=== PATIENT | female | born 2000 | race Caucasian/White ===

== ENCOUNTER 2020-02-13 14:24 | Emergency (ER) | payer OTHER, SELFPAY ==
[2020-02-13 14:34] VITALS: BP 131/70; PULSE 117; RESP 16; TEMP 36.9; O2SAT 100
--- NOTE | 2020-02-13 14:35 | ED.FEMALEGU ---
HPI - Female Genitourinary General Chief complaint: SURVEY RODMAN Stated complaint: yeast infection Time Seen by Provider: 02/13/20 14:35 Source: patient Mode of arrival: ambulatory History of Present Illness HPI Narrative: Isabel Lubin is a 19 yo female with no PMH who comes to express care with a yellowish vaginal discharge that is been present for couple days. Patient is complaining of itching and swelling of the in the genital area; believes that she does not have an STD because she felt the same partner for the last couple months. Tested by her ARTIFICIAL INSEMINATION TECHNICIAN a couple months ago for STDs and was found to be negative. Asked patient to give us a urine for and will check for STD and run a UA at the same time Related Data Allergies Allergy/AdvReac Type Severity Reaction Status Date / Time No Known Allergies Allergy Unverified 06/28/17 18:26 Review of Systems Review of Systems: Narrative: CONSTITUTIONAL: Denies fever, chills, sweats. EYES: Denies visual changes, redness, discharge. ENT: Denies rhinorrhea, congestion, sore throat, otalgia. CARDIOVASCULAR: Denies chest pain, palpitations, edema. RESPIRATORY: Denies dyspnea, wheezing, cough GASTROINTESTINAL: Denies abdominal pain, nausea, vomiting, diarrhea. GENITOURINARY: Denies dysuria, hematuria, has a whitish-yellow abnormal discharge SKIN: Denies rash or itching. NEUROLOGIC: Denies numbness, or focal weakness. PSYCHIATRIC: Denies anxiety or depression. PMFSH Family History Family History Other No active medical problems Social History Social History (Updated 02/13/20 @ 14:42 by Irma Celis CNP) Smoking status: Current some day smoker Comments At time of signature, I agree with nursing past medical, surgical, social and family history. There is no relevant family history pertinent to the presenting complaint. Exam Narrative: Exam Narrative: GENERAL: This is a well-nourished, well-developed patient, in mild distress. HEAD: normocephalic, atraumatic. EYES: Sclera clear/white. Vision is grossly intact. EARS: External ears normal, Hearing grossly intact. NOSE: External nose normal without nasal discharge, nares without redness, no rhinorrhea. THROAT: Mucous membranes moist, NECK: Neck supple, CARDIOVASCULAR: Tachycardic rate and rhythm without murmurs, gallops, or rubs. RESPIRATORY: Clear to auscultation. Breath sounds equal bilaterally. No wheezes, rales, or rhonchi. GASTROINTESTINAL: Abdomen soft, : no CMT, moderate amount white discharge with mild tenderness of vulva, no redness or lesions of vaginal vault SKIN: warm, intact with no suspicious lesions or rash, good texture and turgor. NEURO: awake, alert, and oriented to person, place and time. There were no obvious focal neurologic abnormalities. Steady gait EXTREMITIES: Normal range of motion. BACK: Nontender without deformity Course Course Emergency Course: hcg, UA dip- 1+ leukocytes, no nitries- sent for cx (also tr blood) Pt refuses tx preventatively for std- will wait for results= started on flagyl wiith 1 dose diflucan at end of course follow up with ARTIFICIAL INSEMINATION TECHNICIAN Vital Signs Vital signs: Vital Signs Temperature 98.4 F 02/13/20 14:34 Pulse Rate 117 H 02/13/20 14:34 Respiratory Rate 16 02/13/20 14:34 Blood Pressure 131/70 02/13/20 14:34 Pulse Oximetry 100 02/13/20 14:34 Temperature 98.4 F 02/13/20 14:34 Pulse Rate 117 H 02/13/20 14:34 Respiratory Rate 16 02/13/20 14:34 Blood Pressure 131/70 02/13/20 14:34 Pulse Oximetry 100 02/13/20 14:34 MDM - Female Genitourinary Differential Diagnosis Differential diagnosis: Likely urinary tract infection, bacterial vaginosis, cervicitis, vaginitis, cystitis and other Lab Data Labs: UCG Bedside Result Negative Reference Range: Negative Urine Glucose Negative Reference Range: Negative Urine Bilirubin
== END 2020-02-13 15:06 | disposition home or self-care (01) ==
PROVIDERS: Emergency Provider Nurse Practitioner
DX: N76.0 Acute vaginitis (principal); F17.200 Nicotine dependence, unspecified, uncomplicated
CPT/HCPCS: 81003; 81025; 87077; 87086; 87088; 87491; 87591; 99214; G0463

== ENCOUNTER 2020-02-18 17:50 | Emergency (ER) | payer OTHER, SELFPAY ==
[2020-02-18 18:10] VITALS: BP 122/71; PULSE 117; RESP 18; TEMP 37.3; O2SAT 100
--- NOTE | 2020-02-18 18:17 | ED.HA ---
HPI - Headache General Chief Complaint: Headache Stated Complaint: Headache,Nausea Time Seen by Provider: 02/18/20 18:15 Source: patient and RN notes reviewed Mode of arrival: ambulatory Limitations: no limitations History of Present Illness HPI Narrative: 19-year-old female presents with concern for headache that started today. Reports mild frontal headache, she was concerned that headache could be a side effect of medication. She is currently taking a course of Flagyl prescribed on a previous visit. She denies any weakness, vomiting, rhinorrhea, sore throat, nasal congestion. Denies any intervention for her headache. MD elicited complaint: headache Related Data Allergies Allergy/AdvReac Type Severity Reaction Status Date / Time No Known Allergies Allergy Unverified 06/28/17 18:26 Review of Systems Review of Systems: Narrative: CONSTITUTIONAL: Denies malaise, chills, sweats, or fever. EYES: Denies visual changes, redness, or discharge. ENT: Denies rhinorrhea, congestion, sinus pain, otalgia or sore throat. CARDIOVASCULAR: Denies chest pain, palpitations, or edema. RESPIRATORY: Denies cough or dyspnea. GASTROINTESTINAL: Denies abdominal pain, nausea, vomiting, diarrhea SKIN: Denies rash or itching. MUSCULOSKELETAL: Denies myalgia. NEUROLOGIC: Reports headache. All systems reviewed & are unremarkable except as noted in HPI and below PMFSH Social History Social History (Updated 02/13/20 @ 14:42 by Irma Celis CNP) Smoking status: Current some day smoker Gender identity (if verbalized by the patient): Female Comments At time of signature, agree with nursing past medical, surgical, social and family history. There is no relevant family history pertinent to the presenting complaint Exam Narrative: Exam Narrative: GENERAL: Well-appearing, well-nourished, and in no acute distress. HEAD: Normocephalic, atraumatic. EYES: PERRLA, conjunctivae clear, and EOMI. No nystagmus. ENT: Nares clear, turbinates pink, no rhinorrhea or epistaxis. Mucous membranes moist. Oropharynx without erythema or lesions. Tonsils not present NECK: Supple. CHEST: No respiratory distress. Clear to auscultation. No bony deformities, no asymmetry. Speaks in full sentences. HEART: Regular rate and rhythm. No murmur heard. Normal peripheral pulses. SKIN: Warm, dry, no rash. NEURO: Alert and oriented x3. No focal deficits. Cranial nerves II through XII grossly intact PSYCH: Normal mood and affect Course Course Emergency Course: Patient is aware of diagnosis, understands and agrees to treatment plan. Anticipatory guidance given. Patient agrees to follow-up as directed and is aware of reasons to seek care at the emergency department. Portions of this record may have been created with voice recognition software Vital Signs Vital signs: Vital Signs Temperature 99.1 F 02/18/20 18:10 Pulse Rate 117 H 02/18/20 18:10 Respiratory Rate 18 02/18/20 18:10 Blood Pressure 122/71 02/18/20 18:10 Pulse Oximetry 100 02/18/20 18:10 Temperature 99.1 F 02/18/20 18:10 Pulse Rate 117 H 02/18/20 18:10 Respiratory Rate 18 02/18/20 18:10 Blood Pressure 122/71 02/18/20 18:10 Pulse Oximetry 100 02/18/20 18:10 Reviewed. MDM - Headache MDM Narrative Medical decision making narrative: The patient presents with an acute onset headache for 7 hours in duration. Patient has no past history of headaches. There is not a history of anticoagulation, trauma, , cancer or immunocompromised state. Mental status was normal, no neurological deficits were noted. Differential Diagnosis considered includes hypertensive emergency, subarachnoid hemorrhage, meningitis, trauma, CVA, migraine. Recommendations were given for follow-up with PCP in 1-2 days and to return to the ED for worsening of headache or any other concerns Based on the patient's history and physical there is very low clinical suspicion for significant intracranial pathology. The hea
== END 2020-02-18 18:27 | disposition home or self-care (01) ==
PROVIDERS: Emergency Provider Nurse Practitioner; PCP Pediatrics
DX: R51 Headache (principal)
CPT/HCPCS: 99213; G0463

== ENCOUNTER 2021-05-25 09:46 | Emergency (ER) | payer OTHER, SELFPAY ==
--- NOTE | 2021-05-25 09:59 | ED.URI ---
HPI - URI/Sore Throat General Chief Complaint: Upper Respiratory Infection Stated Complaint: Headache,Body Ache Time Seen by Provider: 05/25/21 09:59 Source: patient, family (mom), RN notes reviewed and old records reviewed Mode of arrival: ambulatory Limitations: no limitations History of Present Illness HPI Narrative: 20-year-old female presents to the [facility] with complaints of a headache and generalized body aches since waking up this morning, 2 hours [employer]. No treatment prior to arrival. Denies any sinus issues. Denies any chest pain or abdominal pain. Denies fevers. Mom reports that she just got over a cold and was worried that daughter was going to be coming down with a cold. Explained to mom and patient that symptoms for only 2 hours, cannot find anything infectious looking. Discussed [id number] treatments. If symptoms get worse to return both patient and mother verbalized understanding. Related Data Allergies Allergy/AdvReac Type Severity Reaction Status Date / Time No Known Allergies Allergy Unverified 06/28/17 18:26 Review of Systems Review of Systems: All systems reviewed & are unremarkable except as noted in HPI and below Constitutional: Constitutional: Reports no additional constitutional complaints, Denies chills and Denies fever(s) Eyes: Eyes: Reports no additional eye complaints and Denies change in vision ENT: Reports system reviewed and no additional complaints, except as documented, Denies dysphagia, Denies dizziness, Denies epistaxis, Denies nasal congestion and Denies sore throat Cardiovascular: Cardiovascular: Reports no additional cardiovascular complaints and Denies chest pain Respiratory: Respiratory: Reports no additional respiratory complaints, Denies cough and Denies dyspnea Gastrointestinal: Gastrointestinal: Reports no additional gastrointestinal complaints, Denies abdominal pain, Denies nausea and Denies vomiting Musculoskeletal: Musculoskeletal: Reports as per HPI and Reports myalgias Integumentary/Breasts: Skin/Breast: Reports system reviewed and no additional complaints, except as docu Neurologic: Reports system reviewed and no additional complaints, except as documented Psychiatric: Psychiatric: Reports no additional psychiatric complaints Allergic/Immunologic: Allergic/Immunologic: Reports no additional allergic/immunologic complaints, Denies lip swelling, Denies throat swelling and Denies tongue swelling PMFSH Past Medical History Medical History (Updated 05/25/21 @ 12:47 by Shauna Harris) Patient denies medical problems Surgical History Surgical History (Updated 05/25/21 @ 12:47 by Shauna Harris) No significant past surgical history Family History Family History Other No active medical problems Social History Social History Smoking status: Current some day smoker Gender identity (if verbalized by the patient): Female Comments At the time of my signature, I reviewed and agree with the nursing past medical, surgical, social, and family history. There is no relevant family history pertinent to the patient complaint. Exam Const: General: healthy appearing, no acute distress and alert Nutritional Appearance: well nourished Orientation/consciousness: patient oriented x3 Limitations: no limitations HENMT: Head: normal to inspection Ears: external ears normal, TM's normal bilaterally and EAC's normal Eyes: Pupils: Equal, round and reactive pupils present Neck: Neck: normal visual inspection, no lymphadenopathy and no meningeal signs Chest: Chest palpation & inspection: normal inspection of the chest Resp: Effort & Inspection: normal respiratory effort and no use of accessory muscles Auscultation: clear to auscultation bilaterally, no crackles, no rales, no rhonchi and no wheezes Cardio: Rate: regular rate Rhythm: regular rhythm GI: GI Palp: Yes S
[2021-05-25 10:00] VITALS: BP 115/60; PULSE 130; RESP 16; TEMP 37.6; O2SAT 99
== END 2021-05-25 10:22 | disposition home or self-care (01) ==
PROVIDERS: Emergency Provider Nurse Practitioner; PCP Family Medicine
DX: R51.9 Headache, unspecified (principal)
CPT/HCPCS: 99211; G0463

== ENCOUNTER 2021-05-29 17:10 | Emergency (ER) | payer OTHER, SELFPAY ==
[2021-05-29 17:19] VITALS: BP 114/65; PULSE 96; RESP 16; TEMP 37.6; O2SAT 100
--- NOTE | 2021-05-29 17:36 | ED.URI ---
HPI - URI/Sore Throat General Chief Complaint: Upper Respiratory Infection Stated Complaint: Congestion,No taste of Smell Time Seen by Provider: 05/29/21 17:36 Source: patient, family and RN notes reviewed Mode of arrival: ambulatory Limitations: no limitations History of Present Illness HPI Narrative: 20-year-old female presents to the [facility] with complaints of congestion with loss of taste and smell yesterday. Has had a for headache. Denies fevers. No nausea vomiting diarrhea. Has been drinking water. No other treatment prior to arrival. Patient states that she does have a concern for Covid MD elicited complaint: rhinorrhea and nasal congestion Related Data Home Medications Medication Instructions Recorded Confirmed cyclobenzaprine 10 mg PO TID 05/29/21 05/29/21 prednisone 40 mg PO DAILY 05/29/21 05/29/21 Allergies Allergy/AdvReac Type Severity Reaction Status Date / Time No Known Allergies Allergy Verified 05/29/21 17:25 Review of Systems Review of Systems: All systems reviewed & are unremarkable except as noted in HPI and below Constitutional: Constitutional: Reports as per HPI, Reports chills, Reports fatigue and Reports fever(s) (Subjective) Eyes: Eyes: Reports no additional eye complaints ENT: Reports system reviewed and no additional complaints, except as documented and Denies sore throat Cardiovascular: Cardiovascular: Reports no additional cardiovascular complaints and Denies chest pain Respiratory: Respiratory: Reports no additional respiratory complaints, Denies cough, Denies dyspnea and Denies wheezing Gastrointestinal: Gastrointestinal: Reports no additional gastrointestinal complaints Genitourinary: Genitourinary: Reports no additional female genitourinary complaints Musculoskeletal: Musculoskeletal: Reports no additional musculoskeletal complaints Integumentary/Breasts: Skin/Breast: Reports system reviewed and no additional complaints, except as docu Neurologic: Reports as per HPI, Reports headache(s), Denies focal weakness and Denies numbness Psychiatric: Psychiatric: Reports no additional psychiatric complaints Allergic/Immunologic: Allergic/Immunologic: Reports no additional allergic/immunologic complaints PMFSH Past Medical History Medical History Patient denies medical problems Surgical History Surgical History No significant past surgical history Family History Family History Other No active medical problems Social History Social History Smoking status: Current some day smoker Gender identity (if verbalized by the patient): Female Comments At the time of my signature, I reviewed and agree with the nursing past medical, surgical, social, and family history. There is no relevant family history pertinent to the patient complaint. Exam Const: General: healthy appearing, no acute distress and alert Nutritional Appearance: well nourished Orientation/consciousness: patient oriented x3 Limitations: no limitations HENMT: Head: normal to inspection Ears: external ears normal, TM's normal bilaterally and EAC's normal Eyes: Pupils: Equal, round and reactive pupils present Neck: Neck: normal visual inspection, no lymphadenopathy and no meningeal signs Chest: Chest palpation & inspection: normal inspection of the chest Resp: Effort & Inspection: normal respiratory effort and no use of accessory muscles Auscultation: clear to auscultation bilaterally, no crackles, no rales, no rhonchi and no wheezes Cardio: Rate: regular rate GI: GI Palp: Yes Soft to palpation and No Tenderness to palpation present (GI) Back/Spine/Pelvis: Back: no CVA tenderness Skin: General skin exam: normal color Rashes: no rashes Wounds: no wounds Neuro: General: patient oriented x3, move
[2021-05-30 17:55] LABS: SARS-CoV-2 RNA PCR Positive
== END 2021-05-29 17:55 | disposition home or self-care (01) ==
PROVIDERS: Emergency Provider Nurse Practitioner; PCP Family Medicine
DX: U07.1 COVID-19 (principal); F17.200 Nicotine dependence, unspecified, uncomplicated
CPT/HCPCS: 99213; C9803; G0463; U0003; U0005

== ENCOUNTER 2022-02-26 13:36 | Emergency (ER) | payer OTHER, SELFPAY ==
--- NOTE | ~2022-02-26 | CT_ITS ---
EXAMINATION: CT abdomen pelvis w con INDICATION: Abdominal pain TECHNIQUE: Computed tomographic images of the abdomen and pelvis were obtained after the administrati on of 100 cc of Omnipaque 350 intravenous contrast. The dose-length product (DLP) was 339.02 mGy-cm. Automated exposure control and iterative reconstruction technique were employed. COMPARISON: None available FINDINGS: The lung bases are clear. The heart size is normal. The liver, spleen, pancreas, gallbladde r, and adrenal glands are normal. The kidneys are unremarkable. No pathologically enlarged abdominal or pelvic lymph nodes are identified. There is no free intraperitoneal gas or evidence of bowel obstr uction. The appendix is normal. IMPRESSION: 1. No CT correlate for the patient's symptoms. Reviewed, dictated and finalized at location B.
[2022-02-26 13:42] VITALS: BP 139/95; PULSE 125; RESP 20; TEMP 36.5; O2SAT 100
[2022-02-26 14:23] LABS: Appearance Urine Clear (Clear); Bilirubin Urine Negative (Negative); Blood Urine 1+ (Negative); Color Urine Yellow (Yellow); Glucose Urine UA Negative (Negative); Ketones Urine Negative (Negative); Leukocyte Esterase Ur Trace LEU/UL (Negative); Nitrate Urine Negative (Negative); Protein Urine Negative (Negative); pH Urine 7.5 (5.0-9.0)
[2022-02-26 14:28] LABS: Basophils Percent Auto 0.6 % (0.2-1.2); Eosinophils Absolute Auto 0.1 K/mm3 (0-0.3); Eosinophils Percent Auto 2.2 % (0-4.4); Hemoglobin 13.1 g/dL (12.0-15.0); Immature Granulocyte Absolute 0.03 K/mm3 (0.00-0.031); Immature Granulocyte Percent A 0.5 % (0-0.5); Lymphocytes Absolute Auto 1.66 K/mm3 (0.9-3.2); Lymphocytes Percent Auto 26.3 % (18.3-44.2); Mean Corpuscular HGB Conc 32.8 g/dl (32-36); Mean Corpuscular Hemoglobin 29.1 pg (26-34); Mean Corpuscular Volume 88.9 fl (80-100); Mean Platelet Volume 11.1 fl (7.4-10.4); Monocytes Absolute Auto 0.8 K/mm3 (0.1-0.6); Monocytes Percent Auto 12.1 % (2.6-8.5); Neutrophils Absolute Auto 3.7 K/mm3 (1.3-6.7); Neutrophils Percent Auto 58.3 % (45.5-73.1); Platelet Count Result 205 k/mm3 (150-375); Red Cell Distribution Width 13.2 % (11.5-14.5); White Blood Count 6.3 K/mm3 (4.5-10.0)
[2022-02-26 14:29] LABS: Squamous Epithelial Cell Urine Few /hpf (Few); WBC Urine 0-3 /hpf
[2022-02-26 14:30] LABS: Add Urine Microscopic? YES
[2022-02-26 14:37] LABS: Alanine Aminotransferase 18 U/L (6-35); Albumin Level 4.4 g/dL (3.5-5.1); Alkaline Phosphatase 77 U/L (38-126); Anion Gap 10 mmol/L (8-16); Aspartate Amino Transferase 27 U/L (14-36); Bilirubin,Total 0.3 mg/dL (0.2-1.3); Blood Urea Nitrogen 11 mg/dL (7-17); Calcium 9.4 mg/dL (8.4-10.2); Carbon Dioxide 26 mmol/L (22-30); Chloride 101 mmol/L (98-107); Estimated CRCL calculation 91 ml/min; Estimated Glomerular Filt Rate > 60; Glucose 109 mg/dL (65-110); Lipase 73 U/L (23-300); Sodium 137 mmol/L (137-145)
[2022-02-26] MEDS: SODIUM CHLORIDE 0.9% IV 1,000 ML 999 ML IV CONT (15:27)
[2022-02-26] MEDS: KETOROLAC 30 MG/ML VIAL (*BKC) IV PUSH (15:28)
[2022-02-26] MEDS: ONDANSETRON INJ 4 MG/2 ML VIAL IV PUSH (15:28)
[2022-02-26 15:52] LABS: Lactic Acid Reflex 1.1 mmol/L (0.7-2.0)
[2022-02-26 16:00] VITALS: BP 85/70
[2022-02-26 16:15] VITALS: BP 108/80; PULSE 97; RESP 16; O2SAT 99
[2022-02-26 16:24] VITALS: BP 117/72; PULSE 100; RESP 16; O2SAT 100
--- NOTE | 2022-02-26 16:59 | ED.GENADULT ---
HPI - General Adult General Chief complaint: Abdominal Pain Stated complaint: abd pain Time Seen by Provider: 02/26/22 13:46 Source: RN notes reviewed History of Present Illness HPI narrative: Patient presents emergency department from home for abdominal pain. Patient states that abdominal pain began approximately 3 to 4 days ago. Pain is located across the upper abdomen and described as aching in nature. Patient states the pain is worse after she eats. States it is associated with nausea she denies any fevers or chills chest pain shortness of breath vomiting diarrhea or any other symptoms. Patient states she does not take anything for the pain Related Data Home Medications Medication Instructions Recorded Confirmed cyclobenzaprine 10 mg tablet 10 mg PO TID PAIN 05/29/21 05/29/21 prednisone 20 mg tablet 40 mg PO DAILY 05/29/21 05/29/21 Allergies Allergy/AdvReac Type Severity Reaction Status Date / Time No Known Allergies Allergy Verified 05/29/21 17:25 Review of Systems Review of Systems: Gen.: Denies fevers or chills ENT: Denies congestion Respiratory: Denies shortness of breath or cough CV: Denies chest pain or palpitations GI: See HPI Musculoskeletal: Denies back pain or muscle pain Neuro: Denies numbness, tingling, weakness or focal weakness Skin: Denies rash Except as documented, all other systems reviewed and negative [facility] Past Medical History Medical History Patient denies medical problems Surgical History Surgical History No significant past surgical history Family History Family History Other No active medical problems Social History Social History Smoking status: Current some day smoker Gender identity (if verbalized by the patient): Female Exam Narrative: APPEARANCE: No acute distress, nontoxic, resting in bed HEENT: Normocephalic, atraumatic, OMM RESPIRATORY: No respiratory distress, clear to auscultation bilaterally with no rhonchi wheezing or rales CARDIOVASCULAR: RRR s murmur ABDOMINAL: Soft nondistended tender palpation right upper quadrant, left upper quadrant and right lower quadrant no tenderness left lower quadrant no rebound or guarding MUSCULOSKELETAl: Moves all extremities. No clubbing, cyanosis or edema. NEURO: Awake and alert. Following commands, speech normal, no focal deficits SKIN:: Warm, dry. Normal Color PSYCHIATRIC: Normal affect/mood Course Course Emergency Course: Patient states that they are feeling much better at this time. States abdominal pain has resolved. Repeat abdominal exam shows the patient's abdomen to be soft and nontender. Discussed with patient results of workup and diagnosis. Discussed need for follow-up with primary care physician, reasons to return to the emergency department in proper use of medication. Patient understands and agrees to current treatment plan Vital Signs Vital signs: Vital Signs Temperature 97.7 F 02/26/22 13:42 Pulse Rate 125 H 02/26/22 13:42 Respiratory Rate 20 02/26/22 13:42 Blood Pressure 139/95 H 02/26/22 13:42 Pulse Oximetry 100 02/26/22 13:42 Oxygen Delivery Room Air 02/26/22 13:42 Temperature 97.7 F 02/26/22 13:42 Pulse Rate 100 02/26/22 16:24 Respiratory Rate 16 02/26/22 16:24 Blood Pressure 117/72 02/26/22 16:24 Pulse Oximetry 100 02/26/22 16:24 Oxygen Delivery Room Air 02/26/22 13:42 Medical Decision Making MDM Narrative Medical decision making narrative: Patient's abdomen is soft without significant pain or signs of surgical abdomen on serial exams. Lab and x-ray evaluations are reviewed and patient is felt to be a reasonable candidate for outpatient management. Patient was instructed as to limitations of x-ray and laboratory evaluation and encourage
[2022-02-26 17:07] VITALS: BP 128/86; PULSE 86; RESP 18; O2SAT 98
== END 2022-02-26 17:07 | disposition home or self-care (01) ==
PROVIDERS: Emergency Provider Emergency Medicine; PCP Family Medicine
DX: R10.10 Upper abdominal pain, unspecified (principal)
CPT/HCPCS: 36415; 74177; 80053; 81001; 81025; 83605; 83690; 85025; 96361; 96374; 96375; 99284; J1885; J2405; J7030; Q9967

== ENCOUNTER 2022-03-06 09:44 | Emergency (ER) | payer OTHER, SELFPAY ==
--- NOTE | 2022-03-06 09:51 | ED.URI ---
HPI - URI/Sore Throat General Chief Complaint: Upper Respiratory Infection Stated Complaint: Sore Throat, Headache, Running Nose Time Seen by Provider: 03/06/22 09:51 Source: patient, RN notes reviewed and old records reviewed Mode of arrival: ambulatory Limitations: no limitations History of Present Illness HPI Narrative: 21-year-old female presents to the [facility] with complaints of sore throat, headache, runny nose since yesterday. No treatment prior to arrival. Requesting a work note Related Data Home Medications Medication Instructions Recorded Confirmed ergocalciferol (vitamin D2) 1,250 1,250 mcg PO DAILY 03/06/22 03/06/22 mcg (50,000 unit) capsule famotidine 20 mg tablet 20 mg PO DAILY 03/06/22 03/06/22 Allergies Allergy/AdvReac Type Severity Reaction Status Date / Time No Known Allergies Allergy Verified 03/06/22 09:51 Review of Systems Review of Systems: All systems reviewed & are unremarkable except as noted in HPI and below Constitutional: Constitutional: Reports no additional constitutional complaints, Denies chills and Denies fever(s) Eyes: Eyes: Reports no additional eye complaints ENT: Reports as per HPI and Reports sore throat Cardiovascular: Cardiovascular: Reports no additional cardiovascular complaints Respiratory: Respiratory: Reports no additional respiratory complaints Gastrointestinal: Gastrointestinal: Reports no additional gastrointestinal complaints Musculoskeletal: Musculoskeletal: Reports no additional musculoskeletal complaints Integumentary/Breasts: Skin/Breast: Reports system reviewed and no additional complaints, except as docu Neurologic: Reports system reviewed and no additional complaints, except as documented Psychiatric: Psychiatric: Reports no additional psychiatric complaints Allergic/Immunologic: Allergic/Immunologic: Reports no additional allergic/immunologic complaints [facility] Past Medical History Medical History (Updated 03/08/22 @ 10:59 by Shauna Harris APRN) Abdominal pain Patient denies medical problems RUQ abdominal pain Surgical History Surgical History No significant past surgical history Family History Family History Other No active medical problems Social History Social History Smoking status: Current some day smoker Gender identity (if verbalized by the patient): Female Comments At the time of my signature, I reviewed and agree with the nursing past medical, surgical, social, and family history. There is no relevant family history pertinent to the patient complaint. Exam Const: General: healthy appearing, no acute distress and alert Nutritional Appearance: well nourished Orientation/consciousness: patient oriented x3 Limitations: no limitations HENMT: Head: normal to inspection Ears: external ears normal, TM's normal bilaterally and EAC's normal General nose exam: Normal external nose present and Normal nares present Face and sinus: normal facial exam Mouth: Yes Normal oral and palatal mucosa present, Yes lip normal and Yes moist mucous membranes Throat: posterior oropharynx normal Eyes: General: appearance normal, both eyes and all related structures Pupils: Equal, round and reactive pupils present Neck: Neck: normal visual inspection, no lymphadenopathy and no meningeal signs Chest: Chest palpation & inspection: normal inspection of the chest Resp: Effort & Inspection: normal respiratory effort and no use of accessory muscles Auscultation: clear to auscultation bilaterally, no crackles, no rales, no rhonchi and no wheezes Cardio: Rate: regular rate Rhythm: regular rhythm Back/Spine/Pelvis: Cervical Spine: normal cervical lordosis Thoracic/Lumbar Spine: thoracic and lumbar spine normal to inspection Skin: General skin exam: normal color Rashes: no rashes
[2022-03-06 09:52] VITALS: BP 108/67; PULSE 115; RESP 18; TEMP 36.8; O2SAT 99
[2022-03-06 12:12] LABS: SARS-CoV-2 RNA PCR Negative
== END 2022-03-06 10:32 | disposition home or self-care (01) ==
PROVIDERS: Emergency Provider Nurse Practitioner; PCP Family Medicine
DX: J06.9 Acute upper respiratory infection, unspecified (principal); Z20.822 Contact with and (suspected) exposure to COVID-19; F17.200 Nicotine dependence, unspecified, uncomplicated
CPT/HCPCS: 87081; 87880; 99213; C9803; G0463; U0003; U0005

== ENCOUNTER 2022-03-14 09:31 | Outpatient (CLI) | payer OTHER, SELFPAY ==
--- NOTE | ~2022-03-14 | NM_ITS ---
EXAMINATION: NM hepatobiliary wo pharm DATE: 03/14/2022 11:57 INDICATION: Right upper quadrant pain, nausea and bloating COMPARISON: None. TECHNIQUE: 5 mCi Tc-99m mebrofenin (Choletec) was administered intravenously. Scintigraphic images o f the abdomen were obtained for one hour. At the 1 hour time point, the patient drank 8 oz Ensure, an d imaging was continued for 60 minutes. Gallbladder ejection fraction was calculated by the technolog ist. FINDINGS: There is normal clearance of radiotracer from the blood pool. There is homogeneous tracer u ptake by the liver. Activity progresses to the bowel and gallbladder. The gallbladder ejection fract ion (GBEF) is 73%. Note that with this technique, normal GBEF >= 33%. IMPRESSION: 1. Normal hepatobiliary scan. Reviewed, dictated and finalized at location A.
== END 2022-03-14 09:32 | disposition home or self-care (01) ==
PROVIDERS: PCP Family Medicine; Visit Provider Nurse Practitioner Family
DX: R10.11 Right upper quadrant pain (principal); R11.0 Nausea; R14.0 Abdominal distension (gaseous)
CPT/HCPCS: 78226; A9537

== ENCOUNTER 2022-08-25 14:40 | Emergency (ER) | payer OTHER, SELFPAY ==
[2022-08-25 14:47] VITALS: BP 119/66; PULSE 88; RESP 14; TEMP 36.6; O2SAT 100
--- NOTE | 2022-08-25 14:47 | ED.ABDPAIN ---
HPI - Abdominal Pain General Chief Complaint: Abdominal Pain Stated Complaint: Abdominal Pain/Nausea/Diarrhea Time Seen by Provider: 08/25/22 14:47 Source: patient, RN notes reviewed and old records reviewed Mode of arrival: ambulatory Limitations: no limitations History of Present Illness HPI narrative: 21-year-old female presents to the [facility] with complaints having diarrhea 2 days ago on . Patient denies any diarrhea since. Has had upper quadrant abdominal discomfort for a while. States it is very intermittent. Intermittent nausea. No vomiting. Denies fevers. Denies any abdominal pain currently Related Data Home Medications Medication Instructions Recorded Confirmed etonogestrel 68 mg subdermal 1 implant subdermal ONCE 08/25/22 08/25/22 implant Allergies Allergy/AdvReac Type Severity Reaction Status Date / Time No Known Allergies Allergy Verified 08/25/22 14:48 Review of Systems Review of Systems: All systems reviewed & are unremarkable except as noted in HPI and below Constitutional: Constitutional: Reports no additional constitutional complaints Eyes: Eyes: Reports no additional eye complaints ENT: Reports system reviewed and no additional complaints, except as documented Cardiovascular: Cardiovascular: Reports no additional cardiovascular complaints, Denies chest pain and Denies dyspnea Respiratory: Respiratory: Reports no additional respiratory complaints, Denies chest congestion, Denies cough and Denies dyspnea Gastrointestinal: Gastrointestinal: Reports as per HPI, Reports abdominal pain, Reports diarrhea, Reports nausea and Denies vomiting Musculoskeletal: Musculoskeletal: Reports no additional musculoskeletal complaints Integumentary/Breasts: Skin/Breast: Reports system reviewed and no additional complaints, except as docu Neurologic: Reports system reviewed and no additional complaints, except as documented Psychiatric: Psychiatric: Reports no additional psychiatric complaints Allergic/Immunologic: Allergic/Immunologic: Reports no additional allergic/immunologic complaints PMFSH Past Medical History Medical History Abdominal pain Patient denies medical problems RUQ abdominal pain Surgical History Surgical History No significant past surgical history Family History Family History Other No active medical problems Social History Social History Smoking status: Current some day smoker Substance use type: does not use Living arrangements: with family Gender identity (if verbalized by the patient): Female Spiritual care concerns: No Comments At the time of my signature, I reviewed and agree with the nursing past medical, surgical, social, and family history. There is no relevant family history pertinent to the patient complaint. Exam Const: General: cooperative, healthy appearing, comfortable, no acute distress, well developed, alert and well nourished Nutritional Appearance: well nourished Orientation/consciousness: patient oriented x3 Limitations: no limitations HENMT: Head: normal to inspection Ears: hearing grossly normal bilaterally and external ears normal Face/Nose/Sinus: Normal external nose present, Normal nares present, Normal nasal mucous membranes and turbinates present and normal facial exam Face and sinus: normal facial exam Mouth: Yes Normal oral and palatal mucosa present, Yes lip normal and Yes moist mucous membranes Throat: posterior oropharynx normal and uvula midline Eyes: General: appearance normal, both eyes and all related structures Alignment and Position: alignment normal Periorbital: periorbital findings normal Conjunctivae: conjunctivae normal Pupils: Equal, round and reactive pupils present EOM: EOMs intac
[2022-08-25 14:49] VITALS: BP 119/66; PULSE 88; RESP 14; TEMP 36.6; O2SAT 100
== END 2022-08-25 15:01 | disposition home or self-care (01) ==
PROVIDERS: Emergency Provider Nurse Practitioner; PCP Family Medicine
DX: R10.11 Right upper quadrant pain (principal); R19.7 Diarrhea, unspecified; F17.200 Nicotine dependence, unspecified, uncomplicated
CPT/HCPCS: 99213; G0463

== ENCOUNTER 2022-11-09 21:00 | Emergency (ER) | payer OTHER, SELFPAY ==
--- NOTE | ~2022-11-09 | CT_ITS ---
EXAMINATION: CT pelvis w con DATE: 11/10/2022 00:50 INDICATION: Acute onset rectal pain. TECHNIQUE: Computed tomography (CT) of the pelvis was performed with 100 mL Omnipaque 350 intravenous contrast. Automated exposure control and iterative reconstruction technique were employed. The dose- length product was 243.66 mGy-cm. COMPARISON: CT abdomen and pelvis 02/26/2022 FINDINGS: There are no dilated loops of bowel. The rectum is normal. There is a 4.1 cm mass in the ri ght ovary, new from 02/26/2022. There are no pathologically enlarged lymph nodes. There is no free int raperitoneal fluid. The bones are unremarkable. IMPRESSION: 1. 4.1 cm mass in the right ovary, most likely a hemorrhagic cyst. Pelvis ultrasound is recommended. Reviewed, dictated and finalized at location E. IMPRESSION: 1. 4.1 cm mass in the right ovary, most likely a hemorrhagic cyst. Pelvis ultra sound is recommended.
[2022-11-09 21:06] VITALS: BP 128/83; PULSE 115; RESP 18; TEMP 36.6; O2SAT 100
--- NOTE | 2022-11-09 22:45 | PC.NURSE ---
Agree with triage note. pt denies any pain at this time.
[2022-11-09 22:54] LABS: Basophils Percent Auto 0.4 % (0.2-1.2); Hemoglobin 13.7 g/dL (12.0-15.0); Immature Granulocyte Absolute 0.02 K/mm3 (0.00-0.031); Immature Granulocyte Percent A 0.2 % (0-0.5); Lymphocytes Absolute Auto 2.72 K/mm3 (0.9-3.2); Mean Corpuscular HGB Conc 33.4 g/dl (32-36); Mean Corpuscular Hemoglobin 30.3 pg (26-34); Mean Corpuscular Volume 90.7 fl (80-100); Mean Platelet Volume 10.4 fl (7.4-10.4); Monocytes Absolute Auto 0.8 K/mm3 (0.1-0.6); Monocytes Percent Auto 7.6 % (2.6-8.5); Neutrophils Absolute Auto 6.5 K/mm3 (1.3-6.7); Neutrophils Percent Auto 64.8 % (45.5-73.1); Platelet Count Result 264 k/mm3 (150-375); Red Blood Count 4.52 M/mm3 (4.2-5.4); Red Cell Distribution Width 12.5 % (11.5-14.5); White Blood Count 10.1 K/mm3 (4.5-10.0)
--- NOTE | 2022-11-09 23:08 | PC.NURSE ---
This RN assumed care of patient
[2022-11-09 23:12] LABS: Alanine Aminotransferase 29 U/L (6-35); Albumin Level 4.9 g/dL (3.5-5.1); Alkaline Phosphatase 71 U/L (38-126); Anion Gap 10 mmol/L (8-16); Aspartate Amino Transferase 30 U/L (14-36); Bilirubin,Total 0.4 mg/dL (0.2-1.3); Blood Urea Nitrogen 15 mg/dL (7-17); Carbon Dioxide 27 mmol/L (22-30); Chloride 101 mmol/L (98-107); Estimated CRCL calculation 90 ml/min; Estimated Glomerular Filt Rate > 60; Glucose 94 mg/dL (65-110); Potassium 3.7 mmol/L (3.4-5.0); Sodium 138 mmol/L (137-145)
--- NOTE | 2022-11-09 23:35 | PC.NURSE ---
Called lab to notify Gisele that there is a stat serum qualitative. States he can run that off of the blood already in lab. Pt updated on plan of care.
--- NOTE | 2022-11-09 23:38 | ED.GENADULT ---
HPI - General Adult General Chief complaint: Unspecified Stated complaint: pain in rectum Time Seen by Provider: 11/09/22 21:51 Source: patient Mode of arrival: ambulatory Limitations: no limitations History of Present Illness HPI narrative: Patient is a 22 y/o female who presents to the ED with c/o rectal pain. Patient reports she developed pain in her rectum approximately 2 hours prior to arrival. She states the pain has been severe with sharp shooting pains. She denies feeling like she needs to have a bowel movement. She states her last bowel movement was this morning and normal. Denied rectal bleeding, melena, diarrhea, pain at that time. Denies recent constipation. Denies history of hemorrhoids or perirectal abscess. Denies any abdominal pain, nausea, vomiting, fevers. Related Data Home Medications Medication Instructions Recorded Confirmed etonogestrel 68 mg subdermal 1 implant subdermal ONCE 08/25/22 08/25/22 implant Allergies Allergy/AdvReac Type Severity Reaction Status Date / Time No Known Allergies Allergy Verified 11/09/22 21:13 Review of Systems Review of Systems: CONSTITUTIONAL: Denies fever, chills, or sweats. CARDIOVASCULAR: Denies chest pain. RESPIRATORY: Denies dyspnea. GASTROINTESTINAL: See HPI. GENITOURINARY: Denies dysuria or hematuria. SKIN: Denies rash or itching. MUSCULOSKELETAL: Denies back pain, joint pain, or myalgia. All systems reviewed & are unremarkable except as noted in HPI and below PMFSH Past Medical History Medical History Abdominal pain Patient denies medical problems RUQ abdominal pain Surgical History Surgical History No significant past surgical history Family History Family History Other No active medical problems Social History Social History Smoking status: Current some day smoker Substance use type: does not use Living arrangements: with family Gender identity (if verbalized by the patient): Female Spiritual care concerns: No Exam Narrative: GENERAL: Well appearing, well-nourished, non-toxic, in no acute distress. HEAD: Normocephalic, atraumatic. NECK: Supple. No adenopathy, no masses. RESPIRATORY: Airway patent, respirations nonlabored. Clear to auscultation bilaterally, no rales, rhonchi, wheezing. CARDIOVASCULAR: Regular rate and rhythm without murmurs, rubs, or gallops. Radial pulses 2+ and equal bilaterally. ABDOMINAL: Soft, no tenderness throughout abdomen, nondistended, no hepatosplenomegaly. Normoactive BS. RECTAL: Normal external genitalia. No signs of erythema, swelling, induration, fluctuance, tenderness throughout buttocks or perirectal/perianal region. Small external hemorrhoid, no signs of thrombosis, nontender. No significant tenderness with MARY KATE, no palpable fluctuance or induration appreciated. No significant stool or fecal impaction felt on MARY KATE. MUSCULOSKELETAL: Moves all extremities. Strength/ROM intact without gross deformities. SKIN: Warm, dry, normal color. No rashes. NEURO: A&O X3. Speech clear. Cranial nerves II-XII grossly intact. Steady gait. No ataxic movements. PSYCHIATRIC: Appropriate mood and affect. Normal interaction. Course Vital Signs Vital signs: Vital Signs Temperature 98 F 11/09/22 21:06 Pulse Rate 115 H 11/09/22 21:06 Respiratory Rate 18 11/09/22 21:06 Blood Pressure 128/83 11/09/22 21:06 Pulse Oximetry 100 11/09/22 21:06 Oxygen Delivery Room Air 11/09/22 21:06 Temperature 98 F 11/09/22 21:06 Pulse Rate 90 11/10/22 02:09 Respiratory Rate 16 11/10/22 02:09 Blood Pressure 102/68 11/10/22 02:09 Pulse Oximetry 98 11/10/22 02:09 Oxygen Delivery Room Air 11/09/22 21:06 Medical Decision Making MDM Narrat
[2022-11-10 00:34] LABS: SPREG INTERNAL CONTROL Positive; Serum Qual hCG Negative
[2022-11-10 01:36] VITALS: BP 90/52; PULSE 108; RESP 16; O2SAT 99
--- NOTE | 2022-11-10 02:06 | PC.NURSE ---
Pt states she wants to go home. This RN explained benefits of staying such as getting CT results and pain control. Also explained risks of leaving such as worsening pain, worsening of condition, and . Pt verbalized understanding and wants to proceed with leaving AMA. This RN instructed pt that if her symptoms worsen she should seek immediate medical attention and she should call her PCP on Saturday to follow up. Pt verbalized understanding and ambulated out of department with steady gait.
[2022-11-10 02:09] VITALS: BP 102/68; PULSE 90; RESP 16; O2SAT 98
== END 2022-11-10 02:10 | disposition left against medical advice (07) ==
LOC: ANHED 21:59
PROVIDERS: Emergency Provider Physician Assistant; PCP Family Medicine
DX: K62.89 Other specified diseases of anus and rectum (principal); F17.200 Nicotine dependence, unspecified, uncomplicated
CPT/HCPCS: 36415; 72193; 80053; 84703; 85025; 99284; Q9967

== ENCOUNTER 2022-11-26 11:49 | Outpatient (CLI) | payer OTHER, SELFPAY ==
--- NOTE | ~2022-11-26 | US_ITS ---
EXAMINATION: US pelvic complete w TV DATE: 11/26/2022 12:44 INDICATION: Ovarian mass seen on CT dated 11/10/2022 Comparison:CT dated 11/10/2022 TECHNIQUE: Multiple transabdominal and endovaginal sonographic images of the pelvis performed. FINDINGS: The uterus measures 6.3 x 2.3 x 3.4 cm. The endometrial complex measures 1 mm. The right ovary measures 3.3 x 1.6 x 1.8 cm and the left ovary measures 1.1 x 0.8 x 0.8 cm. There ar e small follicles in each ovary. Normal doppler signal in both ovaries. There is no free fluid in the pelvis. There are no abnormal masses seen on either side. IMPRESSION: 1. Normal pelvic ultrasound. Reviewed, dictated and finalized at location B.
== END 2022-11-26 11:50 | disposition home or self-care (01) ==
PROVIDERS: PCP Family Medicine; Visit Provider Family Medicine
DX: R19.09 Other intra-abdominal and pelvic swelling, mass and lump (principal)
CPT/HCPCS: 76830; 76856

== ENCOUNTER 2023-02-09 17:10 | Emergency (ER) | payer OTHER, SELFPAY ==
[2023-02-09 17:19] VITALS: BP 128/68; PULSE 99; RESP 16; TEMP 37.3; O2SAT 100
[2023-02-09 17:21] VITALS: BP 128/68; PULSE 99; RESP 16; TEMP 37.3; O2SAT 100
--- NOTE | 2023-02-09 17:25 | ED.GENADULT ---
HPI - General Adult General Chief complaint: Extremity Problem,Nontraumatic Stated complaint: Right Shoulder Pain Time Seen by Provider: 02/09/23 17:25 Source: patient Mode of arrival: ambulatory Limitations: no limitations History of Present Illness HPI narrative: 22-year-old female patient presents to [facility] of right shoulder pain, posterior. Patient states that she woke up this morning with shoulder and neck pain. Patient denies any recent trauma. Patient denies taking any [id number] medications for the pain prior to arrival. Related Data Home Medications Medication Instructions Recorded Confirmed etonogestrel 68 mg subdermal 1 implant subdermal ONCE 08/25/22 02/09/23 implant Allergies Allergy/AdvReac Type Severity Reaction Status Date / Time No Known Allergies Allergy Verified 02/09/23 17:20 Review of Systems Review of Systems: CONSTITUTIONAL: Denies fever, chills, or sweats. EYES: Denies visual changes, redness, or discharge. ENT: Denies rhinorrhea, congestion, sore throat, or otalgia. CARDIOVASCULAR: Denies chest pain, palpitations, or edema. RESPIRATORY: Denies cough or dyspnea. GASTROINTESTINAL: Denies abdominal pain, nausea, vomiting, or diarrhea. GENITOURINARY: Denies dysuria or hematuria. SKIN: Denies rash or itching. MUSCULOSKELETAL: Denies back pain, joint pain, or myalgia. Positive neck and right shoulder pain NEUROLOGIC: Denies headache, numbness, or weakness. PSYCHIATRIC: Denies anxiety or depression. [facility] Past Medical History Medical History Abdominal pain Patient denies medical problems RUQ abdominal pain Surgical History Surgical History No significant past surgical history Family History Family History Other No active medical problems Social History Social History Smoking status: Current some day smoker Substance use type: does not use Living arrangements: with family Gender identity (if verbalized by the patient): Female Spiritual care concerns: No Comments At the time of my signature I agree with nursing past medical history, surgical, social, and family history. There is no relevant family history pertinent to the presenting complaint. Exam Narrative: GENERAL: Well-appearing, well-nourished, and in no acute distress. HEAD: Normocephalic, atraumatic. EYES: PERRLA and EOMI. ENT: Nares clear, no rhinorrhea or epistaxis. Mucous membranes moist. NECK: Supple, no lymphadenopathy. No surface trauma, muscle tenderness noted to the lateral side of the cervical signing on palpation. Obvious spasm noted. Trachea midline. No subq emphysema or crepitus. No noram tenderness, step-offs or deformity to firm Palpation at posterior midline. FROM without limitation or pain, normal flexion, extension,Lateral bending, rotation, and axial load. CHEST: Clear to auscultation. No respiratory distress. HEART: Regular rate and rhythm. No murmur heard. Normal peripheral pulses. ABDOMEN: Soft, nontender, nondistended, normal active bowel sounds. EXTREMITIES: The R shoulder is without obvious asymmetry or deformity when compared to the L shoulder. No surface trauma, ecchymosis, crepitus. No bony deformity or prominence of the humeral head No erythema, warmth, swelling. no tenderness to palpation to clavicle, A to C joint, acromion, scapula or humeral head. No tenderness to palpation of the bicipital groove or soft tissues. tenderness to palpation of the muscles of the trapeizus and obvious muscle spasm noted on palpation. No limitation with active or passive abduction/adduction, internal/external rotation, flexion/extension. Negative empty can and drop arm test (rotator cuff). No axillary tenderness or lymphadenopathy. Normal sensation over the deltoid and yaima
== END 2023-02-09 17:43 | disposition home or self-care (01) ==
PROVIDERS: Emergency Provider Nurse Practitioner Family; PCP Family Medicine
DX: G24.3 Spasmodic torticollis (principal); M62.838 Other muscle spasm; F17.200 Nicotine dependence, unspecified, uncomplicated
CPT/HCPCS: 99213; G0463

== ENCOUNTER 2023-05-04 17:13 | Emergency (ER) | payer OTHER, SELFPAY ==
[2023-05-04 17:49] VITALS: BP 112/69; PULSE 94; RESP 20; TEMP 37.2; O2SAT 100
--- NOTE | 2023-05-04 18:00 | ED.URI ---
HPI - URI/Sore Throat General Chief Complaint: Upper Respiratory Infection Stated Complaint: sore throat,headache Time Seen by Provider: 05/04/23 17:43 Source: patient and RN notes reviewed Mode of arrival: ambulatory Limitations: no limitations History of Present Illness HPI Narrative: Patient presents today complaining of a 3 day history of sore throat, postnasal drip, headache, cough, sneezing. States symptoms have improved slightly since onset. She has been using TheraFlu and NyQuil with some relief and currently rates her pain 6/10. Related Data Home Medications Medication Instructions Recorded Confirmed etonogestrel 68 mg subdermal 1 implant subdermal ONCE 08/25/22 05/04/23 implant Allergies Allergy/AdvReac Type Severity Reaction Status Date / Time No Known Allergies Allergy Verified 05/04/23 17:17 Review of Systems Review of Systems: CONSTITUTIONAL: Denies body aches, fever, chills, or sweats. EYES: Denies visual changes, redness, or discharge. ENT: Denies rhinorrhea, congestion, or otalgia.+ sore throat, postnasal drip, sneezing CARDIOVASCULAR: Denies chest pain, palpitations, or edema. RESPIRATORY: Denies dyspnea.+ cough GASTROINTESTINAL: Denies abdominal pain, nausea, vomiting, or diarrhea. GENITOURINARY: Denies dysuria or hematuria. SKIN: Denies rash, itching, or wounds. MUSCULOSKELETAL: Denies back pain, joint pain, or myalgia. NEUROLOGIC: Denies numbness, tingling, or weakness.+ headache PSYCH: Denies depression or anxiety. PMFSH Past Medical History Medical History Abdominal pain Patient denies medical problems RUQ abdominal pain Surgical History Surgical History No significant past surgical history Family History Family History Other No active medical problems Social History Social History Smoking status: Current some day smoker Substance use type: does not use Living arrangements: with family Gender identity (if verbalized by the patient): Female Spiritual care concerns: No Comments At time of signature, I have reviewed and agree with nursing past medical, surgical, social and family history unless otherwise noted. Please see nursing chart for further information. There is no relevant family history pertinent to the presenting complaint Exam Narrative: GENERAL: Well-appearing, well-nourished, and in no acute distress. HEAD: Normocephalic, atraumatic. EYES: EOMI. No redness or drainage. Conjunctivae normal. ENT: Mucous membranes pink and moist. Nares clear. No rhinorrhea. TMs normal bilaterally. Throat normal. Uvula midline. NECK: Normal AROM. Supple. No lymphadenopathy. CHEST: No respiratory distress. Clear to auscultation. HEART: Regular rate and rhythm. No murmur appreciated. Normal peripheral pulses. EXTREMITIES: Normal range of motion. No edema. SKIN: Warm, dry, no rash. Capillary refill normal. Normal skin turgor. NEURO: No focal deficits. Alert and oriented x3. Gait steady. PSYCH: Normal affect. No signs of depression or anxiety. Course Course Level of Care: Express Care Visit Vital Signs Vital signs: Vital Signs Temperature 99 F 05/04/23 17:49 Pulse Rate 94 05/04/23 17:49 Respiratory Rate 20 05/04/23 17:49 Blood Pressure 112/69 05/04/23 17:49 Pulse Oximetry 100 05/04/23 17:49 Oxygen Delivery Room Air 05/04/23 17:49 Temperature 99 F 05/04/23 17:49 Pulse Rate 94 05/04/23 17:49 Respiratory Rate 20 05/04/23 17:49 Blood Pressure 112/69 05/04/23 17:49 Pulse Oximetry 100 05/04/23 17:49 Oxygen Delivery Room Air 05/04/23 17:49 Reviewed MDM - URI/Sore Throat MDM Narrative Medical decision making narrative: Testing negative. Symptoms likely v
== END 2023-05-04 18:10 | disposition home or self-care (01) ==
PROVIDERS: Emergency Provider Nurse Practitioner; PCP Family Medicine
DX: J06.9 Acute upper respiratory infection, unspecified (principal); Z20.822 Contact with and (suspected) exposure to COVID-19; F17.200 Nicotine dependence, unspecified, uncomplicated
CPT/HCPCS: 87081; 87426; 87804; 87880; 99213; C9803; G0463

== ENCOUNTER 2023-07-31 08:26 | Emergency (ER) | payer OTHER, SELFPAY ==
[2023-07-31 08:40] VITALS: BP 121/61; PULSE 153; RESP 18; TEMP 37.1; O2SAT 100
--- NOTE | 2023-07-31 08:48 | ED.URI ---
HPI - URI/Sore Throat General Chief Complaint: Upper Respiratory Infection Stated Complaint: Sore Throat Time Seen by Provider: 07/31/23 08:29 Source: patient and family Mode of arrival: ambulatory Limitations: no limitations History of Present Illness HPI Narrative: Juana is a 22-year-old female patient presenting to the clinic today with complaints of sore throat, headache, body aches, chills, and fever. She reports symptoms started yesterday. No chest pain or shortness breath. Has had exposure to strep throat. MD elicited complaint: fever, cough, sore throat and nasal congestion Related Data Home Medications Medication Instructions Recorded Confirmed etonogestrel 68 mg subdermal 1 implant subdermal ONCE 08/25/22 07/31/23 implant Allergies Allergy/AdvReac Type Severity Reaction Status Date / Time No Known Allergies Allergy Verified 07/31/23 08:35 Review of Systems Review of Systems: Pertinent positives per HPI. Patient denies any fever, chills, rash, visual changes, dizziness, shortness of breath, chest pain, palpitations, nausea, vomiting, diarrhea, constipation, abdominal pain, or any urinary issues. PMFSH Past Medical History Medical History Abdominal pain Patient denies medical problems RUQ abdominal pain Surgical History Surgical History No significant past surgical history Family History Family History Other No active medical problems Social History Social History Smoking status: Current some day smoker Substance use type: does not use Living arrangements: with family Gender identity (if verbalized by the patient): Female Spiritual care concerns: No Comments At the time of my signature, I reviewed and agree with the nursing past medical, surgical, social, and family history. There is no relevant family history pertinent to the patient complaint. Exam Narrative: General: Well-developed, well nourished, in no apparent distress Head: Normocephalic, atraumatic Eyes: Pupils equally round and reactive to light bilaterally, EOM intact, sclera and conjunctive clear, no discharge, lids normal Ears: TMs intact and clear, ear canals clear, no drainage, grossly hearing normal. Nose: Nares patent, clear nasal discharge, no inflammation, no sinus tenderness. Mouth: Oral pharynx red with mild tonsillar enlargement without lesions or masses, good dentition, MMM. Neck: Supple, trachea midline, enlargement of anterior cervical nodes, no thyroid masses or goiter palpable. Cardio: Regular rate and rhythm, s1 and s2 normal, no murmur appreciated. Resp: Clear to auscultation bilaterally, no rhonchi, rales, wheezing or rubs Course Course Emergency Course: Portions of this record may have been created with voice recognition software. Level of Care: Express Care Visit Vital Signs Vital signs: Vital signs reviewed MDM - URI/Sore Throat MDM Narrative Medical decision making narrative: At the time of visit patient is resting comfortably on the exam table. Patient appears to be nontoxic. Labs: COVID, flu, and strep test were performed. Strep test was negative. COVID, flu, and mono testing was negative. We will send strep for culture. Plan: I suspect patient has URI/pharyngitis viral syndrome. No sign of bacteria infection. Work note was given. Recommend retesting and 1-2 days for COVID if symptoms persist. Supportive measures were discussed with the patient and they voiced understanding discharge instructions and agrees to treatment plan. Return precautions reviewed Differential Diagnosis Differential diagnosis: Likely upper respiratory infection, otitis media, sinusitis, viral infection, bronchitis, influenza, pharyngitis and other (COV
== END 2023-07-31 10:15 | disposition home or self-care (01) ==
PROVIDERS: Emergency Provider Nurse Practitioner Family; PCP Family Medicine
DX: B34.9 Viral infection, unspecified (principal); J06.9 Acute upper respiratory infection, unspecified; J02.9 Acute pharyngitis, unspecified; Z20.822 Contact with and (suspected) exposure to COVID-19; F17.290 Nicotine dependence, other tobacco product, uncomplicated
CPT/HCPCS: 36416; 86308; 87081; 87426; 87804; 87880; 99213; G0463

== ENCOUNTER 2023-12-06 15:21 | Outpatient (CLI) | payer OTHER, SELFPAY ==
--- NOTE | ~2023-12-06 | US_ITS ---
EXAMINATION: US pelvic complete w TV DATE: 12/06/2023 16:03 INDICATION: PELVIC PAIN TECHNIQUE: Multiple transabdominal and endovaginal sonographic images of the pelvis were obtained. COMPARISON: 11/26/2022 FINDINGS: Uterus: 5.6 x 1.9 x 3.7 cm. Endometrial complex measures 1 mm. Right Ovary: 2.9 x 1.5 x 2.1 cm. Vascular flow is present. Multiple ovarian follicles. Left Ovary: 3.0 x 1.8 x 2.6 cm. Vascular flow is present. Multiple ovarian follicles. There is no free fluid in the pelvis. IMPRESSION: Normal pelvic sonogram findings. Reviewed, dictated and finalized at location K.
== END 2023-12-06 15:22 | disposition home or self-care (01) ==
LOC: ANHIMG 15:21
PROVIDERS: PCP Family Medicine; Visit Provider Obstetrics & Gynecology Gynecology
DX: R10.2 Pelvic and perineal pain (principal)
CPT/HCPCS: 76830; 76856

== ENCOUNTER 2023-12-28 19:03 | Emergency (ER) | payer OTHER, SELFPAY ==
[2023-12-28 19:10] VITALS: BP 133/77; PULSE 115; RESP 16; TEMP 36.9; O2SAT 100
--- NOTE | 2023-12-28 19:13 | ED.BACK ---
HPI - Back Pain/Injury General Chief Complaint: Back Pain/Injury Stated Complaint: Back Pain Time Seen by Provider: 12/28/23 19:13 Source: patient Mode of arrival: ambulatory Limitations: no limitations History of Present Illness HPI Narrative: 23 yo F presents with c/o low back pain for 2 days. i woke up this way . NO injury. Sits at work for 8 hours a day. does not exercise. Has not taken any OTC meds to treat symptoms. low back feels tight, cannot bend over and walking hunched over, cannot stand up straight . No radiation of pain to buttock or LEs. All systems reviewed and negative except as noted above. Related Data Home Medications Medication Instructions Recorded Confirmed etonogestrel 68 mg subdermal 1 implant subdermal ONCE 08/25/22 12/28/23 implant Allergies Allergy/AdvReac Type Severity Reaction Status Date / Time No Known Allergies Allergy Verified 12/28/23 19:11 Review of Systems Review of Systems: CONSTITUTIONAL: Denies fever, chills, or sweats. EYES: Denies visual changes, redness, or discharge. ENT: Denies rhinorrhea, congestion, sore throat, or otalgia. CARDIOVASCULAR: Denies chest pain, palpitations, or edema. RESPIRATORY: Denies cough or dyspnea. GASTROINTESTINAL: Denies abdominal pain, nausea, vomiting, or diarrhea. GENITOURINARY: Denies dysuria or hematuria. SKIN: Denies rash or itching. MUSCULOSKELETAL: Reports low back pain. Denies joint pain, or myalgia. NEUROLOGIC: Denies headache, numbness, or weakness. PSYCHIATRIC: Denies anxiety or depression. All other systems reviewed are negative, except as documented in HPI. [facility] Past Medical History Medical History (Updated 12/29/23 @ 00:00 by [facility] Daemon) Abdominal bloating Abdominal pain Bright red rectal bleeding Patient denies medical problems RUQ abdominal pain Tobacco abuse Surgical History Surgical History No significant past surgical history Family History Family History Other No active medical problems Social History Social History Smoking status: Current some day smoker Substance use type: does not use Living arrangements: with family Gender identity (if verbalized by the patient): Female Spiritual care concerns: No Comments At time of signature, agree with nursing past medical, surgical, social and family history. There is no relevant family history pertinent to the presenting complaint. Exam Narrative: GENERAL: This is a well-nourished, well-developed patient, in no apparent distress. HEAD: normocephalic, atraumatic. EYES: PERRL. Sclera clear/white. Vision is grossly intact. EARS: External ears normal NOSE: External nose normal NECK: Neck supple, non-tender without lymphadenopathy, masses or thyromegaly. CARDIOVASCULAR: Regular rate and rhythm without murmurs, gallops, or rubs. RESPIRATORY: Clear to auscultation. Breath sounds equal bilaterally. No wheezes, rales, or rhonchi. SKIN: warm, Dry, intact with no suspicious lesions or rash, good texture and turgor. NEURO: awake, alert, and oriented to person, place and time. There were no obvious focal neurologic abnormalities. EXTREMITIES: No joint tenderness, effusion, or edema noted. No calf tenderness. Negative Homans sign bilaterally. BACK: no midline tenderness. Generalized low back muscle tenderness, spasm. Course Course Level of Care: Express Care Visit Vital Signs Vital signs: Vital Signs Temperature 36.9 C 12/28/23 19:10 Pulse Rate 115 H 12/28/23 19:10 Respiratory Rate 16 12/28/23 19:10 Blood Pressure 133/77 12/28/23 19:10 Pulse Oximetry 100 12/28/23 19:10 Oxygen Delivery Room Air 12/28/23 19:10 Temperature 36.9 C 12/28/23 19:10 Pulse Rate 115 H 12/28/23 19:10 Respiratory Rate 16 12/28/23 19:10 Blood Press
== END 2023-12-28 19:31 | disposition home or self-care (01) ==
PROVIDERS: Emergency Provider Nurse Practitioner Family; PCP Family Medicine
DX: M54.50 Low back pain, unspecified (principal); F17.200 Nicotine dependence, unspecified, uncomplicated
CPT/HCPCS: 99213; G0463

== ENCOUNTER 2024-10-14 16:42 | Emergency (ER) | payer OTHER, SELFPAY ==
[2024-10-14 16:51] VITALS: BP 126/74; PULSE 137; RESP 18; TEMP 38.1; O2SAT 99
--- NOTE | 2024-10-14 17:01 | ED.URI ---
HPI - URI/Sore Throat General Chief Complaint: Upper Respiratory Infection Stated Complaint: sore throat,body aches,RANDLE,nose runny fever Time Seen by Provider: 10/14/24 17:03 Source: patient and RN notes reviewed Mode of arrival: ambulatory Limitations: no limitations History of Present Illness HPI Narrative: 24-year-old female presents with sore throat body ache fever that started today. She has not taken any medications yet for her symptoms. MD elicited complaint: sore throat Related Data Home Medications ?Medication ?Instructions ?Recorded ?Confirmed ?Last Taken ?Type etonogestrel 68 mg subdermal 1 implant subdermal ONCE 08/25/22 10/14/24 Unknown History implant Allergies Allergy/AdvReac Type Severity Reaction Status Date / Time No Known Allergies Allergy Verified 10/14/24 16:56 Review of Systems Review of Systems: CONSTITUTIONAL: Reports malaise, fever. EYES: Denies visual changes, redness, or discharge. ENT: Reports rhinorrhea, congestion, and sore throat. CARDIOVASCULAR: Denies chest pain, palpitations, or edema. RESPIRATORY: Reports cough. Denies dyspnea. GASTROINTESTINAL: Denies abdominal pain, nausea, vomiting, diarrhea SKIN: Denies rash or itching. MUSCULOSKELETAL: Reports myalgia. NEUROLOGIC: Reports headache. All systems reviewed & are unremarkable except as noted in HPI and below PMFSH Past Medical History Medical History (Updated 10/14/24 @ 17:11 by Shauna Lara NP) Tobacco abuse Abdominal bloating Bright red rectal bleeding RUQ abdominal pain Abdominal pain Patient denies medical problems Surgical History Surgical History No significant past surgical history Family History Family History Other No active medical problems Social History Social History Smoking status: Current some day smoker Substance use type: does not use Living arrangements: with family Gender identity (if verbalized by the patient): Female Spiritual care concerns: No Comments At time of signature, agree with nursing past medical, surgical, social and family history. There is no relevant family history pertinent to the presenting complaint Exam Narrative: GENERAL: Nontoxic-appearing, well-nourished, and in no acute distress. HEAD: Normocephalic EYES: PERRLA, conjunctivae clear ENT: Nares clear, clear discharge. Mucous membranes moist. TM pearly freeman with sharp light reflex bilaterally; no tragal tenderness. Oropharynx not erythematous without lesions. Tonsils not enlarged and without exudate, no drooling, no hoarseness, no trismus, uvula midline. NECK: Supple. No lymphadenopathy CHEST: Clear to auscultation, breath sounds equal. No wheezing, rhonchi, rales, or stridor. No respiratory distress, speaks in full sentences. HEART: Regular rate and rhythm. No murmur heard. SKIN: Warm, dry, no rash. NEURO: Alert and oriented x3. PSYCH: Normal mood and affect Course Course Emergency Course: Patient is aware of diagnosis, understands and agrees to treatment plan. Anticipatory guidance given. Patient agrees to follow-up as directed and is aware of reasons to seek care at the emergency department. Portions of this record may have been created with voice recognition software Level of Care: Express Care Visit Vital Signs Vital signs: Vital Signs Temperature 100.6 F H 10/14/24 16:51 Pulse Rate 137 H 10/14/24 16:51 Respiratory Rate 18 10/14/24 16:51 Blood Pressure 126/74 10/14/24 16:51 Pulse Oximetry 99 10/14/24 16:51 Oxygen Delivery Room Air 10/14/24 16:51 Temperature 100.6 F H 10/14/24 16:51 Pulse Rate 137 H 10/14/24 16:51 Respiratory Rate 18 10/14/24 16:51 Blood Pressure 126/74 10/14/24 16:51 Pulse Oximetry 99 10/14/24 16:51 Oxygen Delivery Room Air 10/14/24 16:51 Reviewed. MDM - URI/Sore Throat MDM Narrative Medical decision making narrative: Differential diagnosis considered: Andrews virus, strep pharyngitis, allergic rhinitis, upper respiratory tract infection, sinusitis, rhinosinusitis, nasopharyngitis. viral pharyngitis, otitis media, otitis externa, pneumonia, bronchitis, viral cough syndrome, viral syndrome, and influenza. Exam findings show no acute concerns or changes; patient is non-toxic appearing and is in no distress. Patient is appropriate for outpatient treatment and follow-up. Lab Data Attestation: I reviewed the patient's lab results. Critical Care Time Critical Care Time Critical Care Time: No Discharge Plan Discharge Clinical Impression: Upper respiratory infection Qualifiers: URI type: unspecified URI Qualified Code(s): J06.9 - Acute upper respiratory infection, unspecified Patient Disposition: Home Condition: Stable Instructions: Upper Respiratory Infection (ED) Additional Instructions: Your rapid COVID and flu tests are negative Your rapid strep swab was negative today at [facility]. A throat culture will be sent to the laboratory for further testing. If the test is positive, you will receive a phone call within 48 hours and an appropriate antibiotic will be initiated at that time. Your symptoms are likely due to a viral illness, which is not treated with antibiotics. Viral symptoms can be present for up to a few weeks. -Alternate Tylenol and Motrin per package directions for fever or pain. -Antihistamine medication such as Benadryl at night and Zyrtec during the day can help improve symptoms. -Eat and drink things that are easy to swallow, like tea or soup, or popsicles to suck on. -Oral rinses such as: Salt water gargles and/or may use topical anesthetic (eg. Chloraseptic spray) or lozenges to relieve dryness or throat pain). -Frequent hand washing or hand wine cellar worker is one of the best ways to prevent spread of infection. -Follow up with primary care provider in 2-3 days if condition is not improving; or seek ER visit if you have trouble breathing, cannot drink enough fluids, have muffled voice, difficulty opening your mouth, or severe swelling. Patient Language: Sinhala Prescriptions: New pseudoephedrine HCl [12 Hour Decongestant] 120 mg tablet extended release 120 mg PO Q12H PRN (Reason: nasal congestion) Qty: 20 0RF dextromethorphan-guaifenesin [Mucinex DM] 60-1,200 mg tablet extended release 12 hr 1 tablet PO Q12H Qty: 12 0RF No Action Implanon 68 mg Implant 1 implant SUBDERMAL ONCE Rx Instructions: as a single dose Follow-up/Referrals: rGis,Eva Ascencio MD [Primary Care Provider] - Stand Alone Forms: Work/School Release IP Time of Disposition: 17:13
[2024-10-14 17:15] LABS: EDCOVIDSCREEN Negative (Negative); EDINFLUASCREEN Negative (Negative); EDINFLUBSCREEN Negative (Negative); EDSTREPNEGPOS1 Negative (Negative)
== END 2024-10-14 17:16 | disposition home or self-care (01) ==
PROVIDERS: Emergency Provider Nurse Practitioner; PCP Family Medicine
DX: J06.9 Acute upper respiratory infection, unspecified (principal); Z20.822 Contact with and (suspected) exposure to COVID-19; F17.200 Nicotine dependence, unspecified, uncomplicated
CPT/HCPCS: 87081; 87426; 87804; 87880; 99213; G0463

== ENCOUNTER 2025-01-23 13:13 | Emergency (ER) | payer SELFPAY ==
--- OUTSIDE RECORDS SUMMARY | 2025-01-23 13:15 | XMS_ITS | Data Portability ---
Author Organization [facility] [employer], Main Office Address [address] [place] [address] Assessment No assessment recorded. Plan of Treatment Reminders Order Date Submit Date Provider Last Modified By Organization Details Last Modified Time Details Appointments None recorded. Lab None recorded. Referral None recorded. Procedures None recorded. Surgeries None recorded. Imaging polysomnog daisha, titration study - *Please call pt to schedule* 2023 024 [facility] [place], [address] [place], [address], 4 12:48:37 polysomnog daisha, titration study 2022 023 [email or web address] Not available 16:59:05 Medication Orders None recorded. Patient TargetsNo targets recorded. Patient InstructionsNo instructions recorded. Reason for Referral None Reported. Results Created Date Observation Date Name Description Value Unit Range Abnormal Flag Note LastModifiedBy Organization Detail LastModifiedTime 02/27/20 22 02/26/2022 CT, abdom en + pelvi s, w/ contr ast No observ ation record ed. [id number], [address], 09/05/2022 22:07:07 03/14/20 22 03/14/2022 imagi ng/di agnos tic resul t No observ ation record ed. [id number], [address], 09/05/2022 22:07:07 11/11/19 23 11/10/2022 CT, pelvi s, w/ contr ast No observ ation record ed. [facility] [address], [place], [address], 11/12/2022 14:17:21 11/27/19 23 11/26/2022 US, pelvi s, trans abdom inal + trans vagin al No observ ation record ed. [email or web address] [facility] [address] [facility] [address], [place], [address], 11/29/2022 16:17:44 06/20/20 23 06/14/2023 home sleep study No observ ation record ed. [address], [place], [address], 06/20/2023 09:00:22 06/24/20 23 06/14/2023 home sleep study No observ ation record ed. [email or web address] [facility] [address] [place], [address], 08/08/2023 14:13:18 09/05/19 24 09/03/2023 polys omnog daisha, diagn ostic , 6 yrs or older No observ ation record ed. [email or web address] Not Available 2023 15:05:09 09/06/19 24 09/03/2023 polys omnog daisha, titra tion study No observ ation record ed. [email or web address] [facility] [address] [place], [address], 09/19/2023 09:47:05 12/06/19 24 12/06/2023 US, pelvi s, compl ete No observ ation record ed. [email or web address] [place] [id number] [facility] [address], [place], [address], 12/30/2023 09:29:16 Result Notes None recorded. Problems Name Problem SNOMED Code Status Onset Date Resolution Date Notes Provider Name and Address Organization Details Recorded Time Anxiety 13748599 Active 2019 Not Available [employer] 22:06:01 Obstructive sleep apnea syndrome 97705295 Active 2022 CHINO Crum [address], [address], [place], [address] , [facility] [place] [employer] 3 15:41:08 Sleep apnea 75535254 Active 2023 CHINO Crum [address], [address], [place], [address] , [facility] - [facility] [employer] 4 15:45:13 Notes:Amy Hsu [facility] home sleep study 06/14/23 AHI = 1, supine AHI = 2 Medical History: Anxiety Pediculosis capitis Mild OSAHS, AHI = 1 Hyperlipidemia Vit D deficiency Problem Notes None recorded. Medical Equipment None Reported. Allergies No known drug allergies Medications Name Sig Start Date Stop Date Status Note LastModified by Organization Details LastModified Time cyclobenzap rine 10 mg tablet TAKE 1 TABLET BY MOUTH THREE TIMES DAILY FOR 10 DAYS NEEDED FOR MUSCLE SPASM active Not Available Not Available No t Available amoxicillin 500 mg capsule TAKE 2 STAT THEN 1 CAPSULE BY MOUTH THREE TIMES DAILY 07/19 completed Not Available Not Available Not Available prednisone 10 mg tablet 06/17 completed Not Available Not Available Not Available azithromyci n 250 mg tablet 03/03 completed Not Available Not Available Not Available ibuprofen 800 mg tablet TAKE 1 TABLET BY MOUTH THREE TIMES DAILY FOR 10 DAYS 06/17 completed Not Available Not Available Not Available fluconazole 150 mg tablet TK 1 T PO ONCE A SINGLE DOSE AT THE END OF ANTIBIOTI CS active Not Available Not Available No t Available valacyclovi r 1 gram tablet TAKE 2 TABLETS BY MOUTH EVERY 12 HOURS FOR 1 DAY 06/17 completed Not Available Not Available Not Available prednisone 20 mg tablet Take 2 tablets every day by oral route. 06/17 completed Not Available Not Available Not Available terconazole 0.8 % vaginal cream INSERT 1 APPLICATO RFUL VAGINALLY AT BEDTIME FOR 3 DAYS 06/17 completed Not Available Not Available Not Available metronidazo le 500 mg tablet TK 1 T PO Q 12 H active Not Available Not Available No t Available acetaminoph en 300 mg-codeine 30 mg tablet TAKE 1 TABLET BY MOUTH EVERY 4-6 HOURS NEEDED 05/01 completed Not Available Not Available Not Available acyclovir 400 mg tablet Take 1 tablet every 8 hours by oral route for 7 days. 06/17 completed Not Available Not Available Not Available cephalexin 500 mg capsule 03/03 completed Not Available Not Available Not Available ergocalcife rol (vitamin D2) 1,250 mcg (50,000 unit) capsule TAKE 1 CAPSULE BY MOUTH 1 TIME A WEEK WITH FOOD active Not Available Not Available No t Available ibuprofen 600 mg tablet TAKE 1 TABLET BY MOUTH THREE TIMES DAILY NEEDED FOR FEVER OR PAIN 06/17 completed Not Available Not Available Not Available ondansetron 4 mg disintegrat ing tablet DISSOLVE 1 TABLET ON THE TONGUE EVERY 8 HOURS NEEDED FOR NAUSEA OR VOMITING 06/17 completed Not Available Not Available Not Available escitalopra m 10 mg tablet TK 1 T PO QD 05/01 completed Not Available Not Available Not Available chlorhexidi ne gluconate 0.12 % mouthwash 06/17 completed Not Available Not Available Not Available spinosad 0.9 % topical suspension APPLY 30 - 120 M[address] RS BY TOPICAL ROUTE TO DRY HAIR, SATURATIN G HAIR AND SCALP. AFTER 10 MIN RINSE WITH WARM WATER. MAY REPEAT IN 7 DAYS 06/17 completed Not Available Not Available Not Available Nexplanon 68 mg subdermal implant Inject by subcutane ous route. 2019 active Not Available Not Available Not Avai lable Vitals Date Recorded Body mass index (BMI) Body height Body weight Provider Name and Address Organization Details Last Updated DateTime 07/19/2021 27.3 kg/m2 160.02 cm 69586.22 g Not Available [facility] 09/05/2022 22:05:53 Date Recorded Body height Body mass index (BMI) Body weight Body temperature Heart rate Oxygen saturation Oxygen saturation in Arterial blood by Pulse oximetry Systolic And Diastolic Provider Name and Address Organization Details Last Updated DateTime 4 160.02 cm 28.5 kg/m2 45112.3 7 g 98.3 [degF] 100 /min 100 % 100 % 116/72 mm[Hg] Tamia Israel RN [place] [employer] [facility] 4 15:29:08 Date Recorded Body mass index (BMI) Body height Oxygen saturation Oxygen saturation in Arterial blood by Pulse oximetry Heart rate Body temperature Body weight Systolic And Diastolic Provider Name and Address Organization Details Last Updated DateTime 1 27.1 kg/m2 160.02 cm 98 % 98 % 84 /min 97.8 [degF] 91079.6 3 g 118/82 mm[Hg] Not Available [facility] 3 22:05:51 Date Recorded Body weight Body temperature Heart rate Oxygen saturation Oxygen saturation in Arterial blood by Pulse oximetry Systolic And Diastolic Provider Name and Address Organization Details Last Updated DateTime 3 14080.1 9 g 98 [degF] 83 /min 99 % 99 % 122/68 mm[Hg] Mary Beth Medina LPN [place] [facility] 3 15:38:06 Date Recorded Body mass index (BMI) Body height Heart rate Body temperature Body weight Systolic And Diastolic Provider Name and Address Organization Details Last Updated DateTime 1 27.3 kg/m2 160.02 cm 123 /min 98.2 [degF] 12183.2 2 g 120/80 mm[Hg] Not Available [facility] 3 22:05:52 Social History Question Answer Notes LastModified by [employer] Details LastModified Time Tobacco Smoking Status Never Smoker Not Available [facility] 09/05/2022 22:05:17 What Is Your Level Of Caffeine Consumption? Moderate [id number] Information not available 09/05/2022 How Much Tobacco Do You Chew? None [id number] Information not available 09/05/2022 In The 14 Days Before Symptom Onset, Have You Had Close Contact With A Laboratory-confirm ed COVID-19 While That Case Was Ill? No [id number] Information not available 09/05/2022 In The 14 Days Before Symptom Onset, Have You Had Close Contact With A Person Who Is Under Investigation For COVID-19 While That Person Was Ill? No [id number] Information not available 09/05/2022 What Type Of Diet Are You Following? REGULAR [id number] Information not available 09/05/2022 Which Illicit Or Recreational Drugs Have You Used? No [id number] Information not available 09/05/2022 Are There Any Guns Present In Your Home? No [id number] Information not available 09/05/2022 Are You Passively Exposed To Smoke? No [id number] Information not available 09/05/2022 How Much Tobacco Do You Smoke? No [id number] Information not available 09/05/2022 Do You Use Sunscreen Routinely? Yes [id number] Information not available 09/05/2022 Have You Recently Traveled Abroad? No [id number] Information not available 09/05/2022 Do You Have Any Dietary Restrictions? No [id number] Information not available 09/05/2022 Sex: Unknown Functional Status Question Answer Note LastModified by Organizat ion Details LastModified Time What is your level of alcohol consumption? None [id number] Information not available 09/05/2022 Do you or have you ever used smokeless tobacco? Never used smokeless tobacco [id number] Information not available 09/05/2022 What is your occupation? [employer] [id number] Information not available 09/05/2022 Do you or have you ever used e-cigarettes or vape? Never used electronic cigarettes [id number] Information not available 09/05/2022 What is your exercise level? Moderate [id number] Information not available 09/05/2022 Mental Status None recorded. Family History Nothing Reported. Medical History No medical history recorded. Gynecological History Statement/Question Response Abnormal Pap N Sexually Active? Y Weight gain N Dislike of Light during Menstrual Headac he N Menses Monthly N STIs/STDs N Current Control Method IUD Desired Control Method IUD Breast Problems no Discharge no Obstetrics History GPAL:G 0 P 0 0 0 0 Immunizations Vaccine Type Date Status Note Provider Nam e and Address Organization Details Recorded Time Influenza, split virus, quadrivalent, PF 04/26/2020 completed Not Available [employer] 22:06:58 Past Encounters Encounter ID Performer Location Encounter Start Date Encounter Closed Date Diagnosis/Indication Diagnosis SNOMED-CT Code Diagnosis ICD10 Code Diagnosis Note [id number] JOHANNA Wyman [facility] Primary Care [facility] [address] [facility] [address] [place] [address] 12/27/2020 00:00:00 12/27/2020 10:51:19 [id number] RAFA Messina [facility] Primary [facility] [place] [address] [place] [address] 05/22/2021 00:00:00 05/22/2021 12:50:47 [id number] RAFA Messina [facility] Primary [facility] [place] [address] [place] [address] 07/19/2021 00:00:00 07/19/2021 10:31:24 [id number] Eva Landry MD [facility] Primary Care [place] [address] [place] [address] 05/01/2023 15:27:52 05/01/2023 15:55:57 Obstructive sleep apnea syndrome 78305867 G47.33 Pt mother notes snoring since 10-11 years oldpt notes worsening in the last 3-4 monthsdail y wakes up choking/co ughing/deh ydrated/fa tiguewill order sleep study-enco uraged pt to discuss types of masks with sleep study staff [id number] CHINO Crum [facility] Primary [facility] [place] [address] [place] [address] 08/15/2023 15:21:17 08/15/2023 15:51:28 Sleep apnea 10570524 G47.30 -sleep study was completed- symptoms continue, daily wakes up choking/co ughing/deh ydrated/fa tigue-pt questions whether results of home sleep study are accurate-w ill try to order in office sleep study Pt mother notes snoring since 10-11 years old Health Concerns Section Related Observation LastModified by Organization Detai ls LastModified Time None Recorded Concern Status LastModified by Organization Details LastModified Time None Recorded Advance Directives Directive None Recorded Payers Insurance Date Sequence Insurance Name Policy Number Policy Hussein Covered Member ID Hussein Member ID Guarantor Name 09/11/2023 1 [facility] - DOS ON OR AFTER 21 (MEDICAID REPLACEMENT - HMO) Isabel Lubin [id number] Isabel Lubin Notes Date Note Type Note Provider Name and Address Organization Details Recorded Time 05/01/2023 text/html Pt is here to f/u for sleep apnea CHINO Crum [address], [address], [place], [address], [employer] [facility] 05/01/2023 16:02:25 08/15/2023 text/html Pt is here to discuss sleep study CHINO Crum [address], [address], [place], [address], [employer] 08/15/2023 15:48:10 OBGyn Episode No OBEpisode recorded.
--- OUTSIDE RECORDS SUMMARY | 2025-01-23 13:15 | XMS_ITS | Clinical Summary ---
Author Organization [facility] [employer] Address [address] [place] [address] Care Team Providers Care Engraver Ornamental Design Name Role Phone Unavailable Primary Care Provider Unavailabl e Source Comments [facility] [employer],non-owned Affiliates and Associated Physician Practices is amultiple site organization consisting of ambulatory clinics and hospital sitesin [place], [place], [place] and [place]. This disclosure is being madepursuant to the Care Everywhere program and may not contain all information available regarding this patient. Last updated 18.[facility] [employer] Allergies No known active allergies Medications * Be aware that medications may not be up to date on this document. Alwaysverify current medications with the patient. 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 Gender Identity Not on file Sexual Orientation Not on file Plan of Treatment Health Maintenance Due Date Last Done Comments HIV SCREENING 09/15/2015 HPV VACCINE (1 - 3-dose series) 09/15/2015 CHLAMYDIA/GONORRHEA SCREENING 2016 HEPATITIS C SCREENING 09/10/2018 DTAP/TDAP/TD VACCINES (1 - Tdap) 09/15/2019 HEPATITIS B VACCINE (1 of 3 - 19+ 3-dose series) 09/15/2019 COVID-19 VACCINE (1 - 2023-2 5 season) 2024 DEPRESSION SCREENING 07/08/2024 INFLUENZA VACCINE (#1) 2025 ZOSTER VACCINE (1 of 2) 2050 HIB VACCINE Aged Out No longer eligi ble based on patient's age to complete this topic MENINGOCOCCAL (Group B) VACC INE SHARED DECISION-MAKING Aged Out No longer eligibl e based on patient's age to complete this topic MENINGOCOCCAL GROUPS A/C/Y/W VACCINE Aged Out No longer eligible b ased on patient's age to complete this topic PNEUMOCOCCAL VACCINE Aged Out No long er eligible based on patient's age to complete this topic Insurance MEDICAID - [place]
--- OUTSIDE RECORDS SUMMARY | 2025-01-23 13:15 | XMS_ITS | Continuity of Care Document ---
Author Organization [facility] Address [address] [place] [address] utive [facility] [address] [place] [address] Phone Care Team Providers Care Medical Investigator Name Role Phone Alison Mendoza Unavailable Unavailable Procedures Procedure Date Eye Exam, New Patient Advance Directives Directive Yes / No Effective Date File Name No Information Encounters Encounter Description Practice Location Reason(s) For Visit Diagnoses Date Provider Providers Copied on Encounter [facility], [address], [place], [place], [id number], [place] tel:[phone] [facility] No Information [address] , [address], [place], [address], [place]. tel:[phone] Family History Family Member Type Diagnosis Age At Onset No Information Payers Payer name Insurance type Covered democrat ID Authoriza tion(s) Medicaid [facility] [id number] Social History Type Description Quantity Date Captured Comments Sex Female Smoking Status No Information Chief Complaint And Reason For Visit No Information Reason For Referral Reason For Referral No Information History Of Present Illness Encounter Date Complaint History Of Prese nt Illness No Information Functional Status Date Functional Assessmen t No Information Instructions Date Instruction Additional Infor mation No Information Assessments Type Assessment Date No Information Patient Care Teams Name Effective Dates (start - stop) Status Members No Information
--- OUTSIDE RECORDS SUMMARY | 2025-01-23 13:15 | XMS_ITS | Clinical Summary ---
Author Organization [facility] Address [address] [place] [address] Care Team Providers Care Daytime Caregiver Name Role Phone Unavailable Primary Care Provider Unavailabl e Social History Tobacco Use Types Packs/Day Years Used Date Smoking Tobacco: Never Assessed Comments Unknown Sex and Gender Information Value Date Recorded Sex Assigned at Not on file Legal Sex Female 8:33 PM CDT Gender Identity Not on file Sexual Orientation Not on file Plan of Treatment Health Maintenance Due Date Last Done Comments Cervical Cancer Screening Pa p Smear (Age 21 to 29) Every 3 Years 2000 Cervical Cancer Screening 2000 Annual Physical 09/15/2003 HPV Vaccines (1 - 3-dose series) 09/15/2015 Hepatitis C 2018 DTaP, Tdap and Td Vaccines ( 1 - Tdap) 09/15/2019 Hepatitis B Vaccines (1 of 3 - 19+ 3-dose series) 09/15/2019 COVID-19 Vaccine (2023-2 5 season) 2024 Meningococcal B Vaccine Aged Out No l onger eligible based on patient's age to complete this topic Meningococcal Vaccine Aged Out No mateo osiris eligible based on patient's age to complete this topic Pneumococcal Vaccine: Pediat rics (0 to 5 Years) and At-Risk Patients (6 to 49 Years) Aged Out No longer eligible b ased on patient's age to complete this topic RSV Immunizations Under 20 Months Aged Out No longer eligible based on patient's age to complete this topic
[2025-01-23 13:31] VITALS: BP 125/81; PULSE 90; RESP 20; TEMP 36.5; O2SAT 100
[2025-01-23 14:10] LABS: BEDSIDEPREGUCG Negative (Negative)
[2025-01-23 14:14] LABS: Add Urine Microscopic? NO; Appearance Urine Clear (Clear); Glucose Urine UA Negative (Negative); Leukocyte Esterase Ur Negative LEU/UL (Negative); Nitrate Urine Negative (Negative); Specific Grav Ur 1.013 (1.001-1.035)
[2025-01-23 15:34] VITALS: BP 113/70; PULSE 100
[2025-01-23 15:35] VITALS: BP 127/70; BP 135/78; PULSE 97; PULSE 98
--- NOTE | 2025-01-23 16:00 | ECG_ITS ---
Test Date: 2025-01-23 16:22:17 Measurements Intervals [place] Rate: 76 P: -4 [place]: 115 QRS: 72 QRSD: 86 T: 58 QT: 379 QTc: 427 Interpretive Statements SINUS RHYTHM WITH SHORT [place] INTERVAL NORMAL ELECTROCARDIOGRAM No previous ECG available for comparison Electronically Signed On 01-24-2025 08:08:47 CDT by Josh Collins M.D.
--- NOTE | 2025-01-23 16:10 | ED_ITS ---
HPI - General Adult General Chief complaint: Dizziness Stated complaint: light headed and dizzy Time Seen by Provider: 01/23/25 15:38 History of Present Illness HPI narrative: 24-year-old female presents to the emergency department for evaluation for feelings of lightheaded dizziness, nasal congestion and feeling ill over the last few days. Patient reports the 1st symptoms she had were yesterday when she was washing her face and she had onset of dizziness. Patient states the day she did not feel herself and had additional nonspecific symptoms Related Data Home Medications ?Medication ?Instructions ?Recorded ?Confirmed ?Last Taken ?Type etonogestrel 68 mg subdermal 1 implant subdermal ONCE 08/25/22 10/14/24 Unknown History implant Allergies Allergy/AdvReac Type Severity Reaction Status Date / Time No Known Allergies Allergy Verified 01/23/25 13:34 Review of Systems 2 Review of Systems: All systems reviewed & are unremarkable except as noted in HPI and below PMFSH Past Medical History Medical History (Updated 01/23/25 @ 18:04 by Evan Schmid MD) Tobacco abuse Abdominal bloating Bright red rectal bleeding RUQ abdominal pain Abdominal pain Patient denies medical problems Surgical History Surgical History No significant past surgical history Family History Family History Other No active medical problems Social History Social History Smoking status: Current some day smoker Substance use type: does not use Living arrangements: with family Gender identity (if verbalized by the patient): Female Spiritual care concerns: No Exam 2 Narrative: APPEARANCE: Well appearing, no pain, no distress, well-nourished. HEAD: normocephalic, atraumatic. EYES: PERRLA/EOMI, conjunctivae clear. NOSE: Normal no drainage EARS:TMS clear with good light reflex. THROAT: Pharynx clear, no exudate. NECK: Supple. No adenopathy, no masses. RESPIRATORY: Airway patent, respirations nonlabored. Clear to auscultation bilaterally, no rales, rhonchi, wheezing. CARDIOVASCULAR: Regular rate and rhythm without murmurs rubs or gallops. ABDOMINAL: Soft, nontender, nondistended, normal bowel sounds MUSCULOSKELETAL: Moves all extremities. Strength/ROM intact, No edema, No calf tenderness. NEURO: Alert. Cranial nerves II through XII intact. Good gait. Good coordination SKIN: Warm, dry. Normal Color Course Vital Signs Vital signs: Vital Signs Temperature 97.7 F 01/23/25 13:31 Pulse Rate 90 01/23/25 13:31 Respiratory Rate 20 01/23/25 13:31 Blood Pressure 125/81 01/23/25 13:31 Pulse Oximetry 100 01/23/25 13:31 Temperature 97.7 F 01/23/25 13:31 Pulse Rate 98 01/23/25 15:35 Respiratory Rate 20 01/23/25 13:31 Blood Pressure 127/70 01/23/25 15:35 Pulse Oximetry 100 01/23/25 13:31 Medical Decision Making MDM Narrative Medical decision making narrative: [age] old female presents emergency department for evaluation for dizziness and lightheadedness. Patient is currently afebrile with a leukocytosis of 10.7 hemoglobin 13.3. Patient has no acute abnormalities on her CMP and UA is negative for infection patient was negative for influenza RSV COVID and for strep. Patient's test was negative. Patient did feel improved after rehydration. Suspect patient had a viral illness versus dehydration. Patient was encouraged of close follow-up with her primary care physician. Differential Diagnosis Differential Diagnosis: COVID, RSV, influenza, pneumonia, strep throat, dehydration, sinus infection, seasonal allergies Vital Signs Vital Signs: Vital Signs Temperature 97.7 F 01/23/25 13:31 Pulse Rate 90 01/23/25 13:31 Respiratory Rate 20 01/23/25 13:31 Blood Pressure 125/81 01/23/25 13:31 Pulse Oximetry 100 01/23/25 13:31 Temperature 97.7 F 01/23/25 13:31 Pulse Rate 98 01/23/25 15:35 Respiratory Rate 20 01/23/25 13:31 Blood Pressure 127/70 01/23/25 15:35 Pulse Oximetry 100 01/23/25 13:31 Lab Data Lab results reviewed: Yes I reviewed the patient's lab results. 01/23/25 16:14 01/23/25 16:14 Labs: Lab Results 01/23/25 01/23/25 01/23/25 Range/Units 13:47 14:09 16:14 WBC 10.7 H (4.5-10.0) K/mm3 RBC 4.59 (4.2-5.4) M/mm3 Hgb 13.3 (12.0-15.0) g/dL Hct 41.2 (37.0-47.0) % MCV 89.8 (80-100) fl MCH 29.0 (26-34) pg MCHC 32.3 (32-36) g/dl RDW 12.5 (11.5-14.5) % Plt Count 251 (150-375) k/mm3 MPV 11.3 H (7.4-10.4) fl Immature Gran % (Auto) 0.3 (0-0.5) % Neut % (Auto) 65.8 (45.5-73.1) % Lymph % (Auto) 26.3 (18.3-44.2) % [place] % (Auto) 7.2 (2.6-8.5) % Eos % (Auto) 0.0 (0-4.4) % Baso % (Auto) 0.4 (0.2-1.2) % Lymph # (Auto) 2.81 (0.9-3.2) K/mm3 [place] # (Auto) 0.8 H (0.1-0.6) K/mm3 Eos # (Auto) 0.0 (0-0.3) K/mm3 Baso # (Auto) 0.0 (0.0-0.1) K/mm3 Abs Immat Gran (auto) 0.03 (0.00-0.031) K/mm3 Absolute Neuts (auto) 7.1 H (1.3-6.7) K/mm3 Absolute Nucleated RBC 0.000 (0.0-0.012) K/mm3 Nucleated RBC % 0.0 (0.0-0.2) % Sodium 139 (137-145) mmol/L Potassium 4.8 (3.4-5.0) mmol/L Chloride 104 (98-107) mmol/L Carbon Dioxide 24 (22-30) mmol/L Anion Gap 11 (4-12) mmol/L BUN 15 (7-17) mg/dL Creatinine 0.81 (0.7-1.0) mg/dL Estim Creat Clear Calc 92 ml/min Estimated GFR > 60 (59 - ) Glucose 97 (65-110) mg/dL Calcium 9.8 (8.4-10.2) mg/dL Total Bilirubin 0.3 (0.2-1.3) mg/dL AST 31 (14-36) U/L ALT 22 (6-35) U/L Alkaline Phosphatase 68 (38-126) U/L Total Protein 8.8 H (6.3-8.2) g/dL Albumin 4.7 (3.5-5.1) g/dL Urine Color Yellow (Yellow) Urine Appearance Clear (Clear) Urine pH 7.0 (5.0-9.0) Ur Specific Varney 1.013 (1.001-1.035) Urine Protein Negative (Negative) mg/dL Urine Glucose (UA) Negative (Negative) mg/dL Urine Ketones Negative (Negative) mg/dL Ur Blood (Man) Negative (Negative) Urine Nitrate Negative (Negative) Urine Bilirubin Negative (Negative) Urine Urobilinogen 0.2 (<2.0) mg/dL Leukocyte Esterase Rfl Negative (Negative) TOMASA/UL POC Urine HCG, Qual Negative (Negative) Influenza A (RT-PCR) Negative (Negative) Influenza B (RT-PCR) Negative (Negative) RSV (RT-PCR) Negative (Negative) SARS-CoV-2 RNA (RT-PCR) Negative (Negative) Group A Strep (PCR) Not detected (Negative) Discharge Plan Discharge Clinical Impression: Near syncope, Light-headedness Patient Disposition: Home Condition: Stable Instructions: Antibiotic Form Additional Instructions: Tylenol and ibuprofen for fever for body aches. Drink plenty of fluids. Have close follow-up with your primary care physician. If you have any worsening symptoms then please call or return to the emergency department. Patient Language: Croatian Prescriptions: No Action pseudoephedrine HCl [12 Hour Decongestant] 120 mg tablet extended release 120 mg PO Q12H PRN (Reason: nasal congestion) Qty: 20 0RF dextromethorphan-guaifenesin [Mucinex DM] 60-1,200 mg tablet extended release 12 hr 1 tablet PO Q12H Qty: 12 0RF Implanon 68 mg Implant 1 implant SUBDERMAL ONCE Rx Instructions: as a single dose Follow-up/Referrals: Gris,Eva Ascencio MD [Non-Staff] - Stand Alone Forms: Work/School Release IP
[2025-01-23] MEDS: LACTATED RINGERS 1,000 ML 999 ML IV CONT (16:14)
[2025-01-23 16:21] LABS: Hematocrit 41.2 % (37.0-47.0); Hemoglobin 13.3 g/dL (12.0-15.0); Immature Granulocyte Percent A 0.3 % (0-0.5); Lymphocytes Absolute Auto 2.81 K/mm3 (0.9-3.2); Mean Corpuscular HGB Conc 32.3 g/dl (32-36); Mean Corpuscular Hemoglobin 29.0 pg (26-34); Mean Corpuscular Volume 89.8 fl (80-100); Nucleated Red Blood Cells Absolute Auto 0.000 K/mm3 (0.0-0.012); Nucleated Red Blood Cells Perc 0.0 % (0.0-0.2); Platelet Count Result 251 k/mm3 (150-375); Red Blood Count 4.59 M/mm3 (4.2-5.4); White Blood Count 10.7 K/mm3 (4.5-10.0)
[2025-01-23 16:30] LABS: Alanine Aminotransferase 22 U/L (6-35); Albumin Level 4.7 g/dL (3.5-5.1); Alkaline Phosphatase 68 U/L (38-126); Anion Gap 11 mmol/L (4-12); Aspartate Amino Transferase 31 U/L (14-36); Bilirubin,Total 0.3 mg/dL (0.2-1.3); Blood Urea Nitrogen 15 mg/dL (7-17); Calcium 9.8 mg/dL (8.4-10.2); Carbon Dioxide 24 mmol/L (22-30); Chloride 104 mmol/L (98-107); Estimated CRCL calculation 92 ml/min; Estimated Glomerular Filt Rate > 60; Glucose 97 mg/dL (65-110); Potassium 4.8 mmol/L (3.4-5.0); Sodium 139 mmol/L (137-145); Total Protein 8.8 g/dL (6.3-8.2)
[2025-01-23 16:47] LABS: Strep Group A RT-PCR NOT DETECTED (Negative)
--- OUTSIDE RECORDS SUMMARY | 2025-01-23 16:48 | XMS_ITS | Continuity of Care Document ---
Author Organization [facility] Address [address] [place] [address] utive [facility] [address] [place] [address] Phone Care Team Providers Care Poultry Farmer Egg Name Role Phone Alison Mendoza Unavailable Unavailable Procedures Procedure Date Eye Exam, New Patient Advance Directives Directive Yes / No Effective Date File Name No Information Encounters Encounter Description Practice Location Reason(s) For Visit Diagnoses Date Provider Providers Copied on Encounter [facility], [address], [place], [place], [id number], [place] tel:[phone] [facility] No Information [address] [place] , [address], [place], [address], [place]. tel:[phone] Family History Family Member Type Diagnosis Age At Onset No Information Payers Payer name Insurance type Covered green party ID Authoriza tion(s) Medicaid [facility] [id number] Social History Type Description Quantity Date Captured [...]
--- OUTSIDE RECORDS SUMMARY | 2025-01-23 16:48 | XMS_ITS | Clinical Summary ---
Author Organization [facility] [employer] Address [address] [place] [address] Care Team Providers Care Ammunition Supervisor Name Role Phone Unavailable Primary Care Provider Unavailabl e Source Comments [facility] [employer],non-owned Affiliates and Associated Physician Practices is amultiple site organization consisting of ambulatory clinics and hospital sitesin [place], [place], [place] and [place]. This disclosure is being madepursuant to the Care Everywhere program and may not contain all information available regarding this patient. 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
--- OUTSIDE RECORDS SUMMARY | 2025-01-23 16:48 | XMS_ITS | Clinical Summary ---
Author Organization [facility] Address [address] [place] [address] Care Team Providers Care Auto Electrician Name Role Phone Unavailable Primary Care Provider [...]
[2025-01-23 16:58] LABS: Influenza A QL RT-PCR Negative (Negative); Influenza B QL RT-PCR Negative (Negative); RSV RNA, RT-PCR Negative (Negative); SARS-CoV-2 RNA PCR Negative (Negative)
== END 2025-01-23 18:11 | disposition home or self-care (01) ==
PROVIDERS: Emergency Provider Emergency Medicine; PCP Nurse Practitioner Family
DX: R42 Dizziness and giddiness (principal); R55 Syncope and collapse; Z20.822 Contact with and (suspected) exposure to COVID-19; F17.200 Nicotine dependence, unspecified, uncomplicated
CPT/HCPCS: 36415; 80053; 81003; 81025; 85025; 87637; 87651; 93005; 96360; 99283; J7120

== ENCOUNTER 2025-07-06 15:22 | Outpatient (CLI) | payer OTHER, SELFPAY ==
--- NOTE | ~2025-07-06 | US_ITS ---
EXAMINATION: US pelvic complete INDICATION: Pelvic pain Comparison:No prior studies for comparison. TECHNIQUE: Multiple transabdominal and endovaginal sonographic images of the pelvis performed. FINDINGS: The uterus measures 6.4 x 2.7 x 4.5 cm. The endometrial complex measures 3 mm. The right ovary measures 3.6 x 2.1 x 2.6 cm and the left ovary measures 2 x 2.4 x 1.8 cm. There are small follicles in each ovary. Normal doppler signal in both ovaries. There is no free fluid in the pelvis. There are no abnormal masses seen on either side. IMPRESSION: 1. Unremarkable pelvic ultrasound. Reviewed, dictated and finalized at location [facility]. [facility]
== END 2025-07-06 15:23 | disposition home or self-care (01) ==
LOC: MICIMG 15:24
DX: R10.23 Pelvic and perineal pain bilateral (principal)
CPT/HCPCS: 76856